=== PATIENT | male | born 1945 | race Native Hawaiian/Other Pacific Islander ===

== ENCOUNTER 2016-12-22 11:00 | Outpatient (CLI) | payer OTHER, MEDICARE | END 2016-12-22 11:01 | disposition home or self-care (01) | DX: N05.9 Unspecified nephritic syndrome with unspecified morphologic changes (principal); D70.9 Neutropenia, unspecified; E83.30 Disorder of phosphorus metabolism, unspecified; N25.81 Secondary hyperparathyroidism of renal origin ==

== ENCOUNTER 2017-01-20 13:12 | Outpatient (CLI) | payer OTHER, MEDICARE ==
[2017-01-21 12:08] LABS: CALCIUM 9.8 mg/dL (8.5-10.3); CREATININE 2.3 mg/dL (0.6-1.2); POTASSIUM 4.4 mmol/L (3.5-5.0)
== END 2017-01-20 13:13 | disposition home or self-care (01) ==
LOC: LAB.F 13:12
PROVIDERS: ATTEND Internal Medicine Nephrology
DX: N05.9 Unspecified nephritic syndrome with unspecified morphologic changes (principal); I50.32 Chronic diastolic (congestive) heart failure
CPT/HCPCS: 36415; 80048; 83880

== ENCOUNTER 2017-02-04 13:59 | Outpatient (CLI) | payer OTHER, MEDICARE ==
[2017-02-04 19:01] LABS: CALCIUM 9.6 mg/dL (8.5-10.3); CREATININE 1.9 mg/dL (0.6-1.2); POTASSIUM 4.5 mmol/L (3.5-5.0)
== END 2017-02-04 14:00 | disposition home or self-care (01) ==
LOC: LAB.F 13:59
PROVIDERS: ATTEND Internal Medicine Nephrology
DX: N05.9 Unspecified nephritic syndrome with unspecified morphologic changes (principal)
CPT/HCPCS: 36415; 80048

== ENCOUNTER 2017-03-06 09:43 | Outpatient (CLI) | payer OTHER, MEDICARE ==
[2017-03-06 10:08] LABS: CALCIUM 9.5 mg/dL (8.5-10.3); POTASSIUM 4.2 mmol/L (3.5-5.0)
== END 2017-03-06 09:44 | disposition home or self-care (01) ==
LOC: LAB 09:43
PROVIDERS: ATTEND Internal Medicine Nephrology
DX: N05.9 Unspecified nephritic syndrome with unspecified morphologic changes (principal)
CPT/HCPCS: 36415; 80048

== ENCOUNTER 2018-07-05 13:32 | Outpatient (CLI) | payer OTHER, MEDICARE | END 2018-07-05 13:33 | disposition critical access hospital (66) | LOC: EMS 13:32 | PROVIDERS: ATTEND Surgery | DX: R10.13 Epigastric pain (principal); R11.0 Nausea; R42 Dizziness and giddiness | CPT/HCPCS: A0425; A0429 ==

== ENCOUNTER 2018-07-05 14:11 | Emergency (ER) | payer OTHER, MEDICARE ==
[2018-07-05] MEDS ORDERED: SODIUM CHLORIDE 0.9% 1,000 ML IV ONE (14:38)
[2018-07-05 14:44] LABS: BILIRUBIN,URINE NEGATIVE (NEGATIVE); GLUCOSE, URINE (UA) NEGATIVE (NEGATIVE); KETONES,URINE (UA) NEGATIVE (NEGATIVE); LEUKOCYTE ESTERASE, URINE NEGATIVE (NEGATIVE); NITRITE,URINE NEGATIVE (NEGATIVE); OCCULT BLOOD,URINE TRACE-LYSE (NEGATIVE); PROTEIN,URINE NEGATIVE (NEGATIVE); UROBILINOGEN,URINE 0.2 (NORMAL) E.U./dL (NORMAL)
[2018-07-05 14:47] LABS: CLARITY,URINE CLEAR (CLEAR)
--- NOTE | 2018-07-05 15:01 | ED Physician Documentation ---
PD HPI ABD PAIN - Stated complaint Stated Complaint: ABD PX - Chief complaint Chief Complaint: Abd Pain - History obtained from History obtained from: Patient, EMS - History of Present Illness Timing - onset: Today Timing - duration: Days (1) Timing - details: Abrupt onset, Now resolved Pain level max: 8 Pain level now: 0 Quality: Pain Location: RUQ, Epigastric Radiation: Other (non-radiating) Improved by: Meds (states took a pain medication today) Worsened by: Eating Associated symptoms: Nausea. No: Fever, Vomiting, Hematemesis, Diarrhea, Constipation, Melena, Hematochezia, Dysuria Similar symptoms before: Diagnosis (biliary colic) Recently seen: Emergency Dept ([facility]) Review of Systems Constitutional: denies: Fever, Chills, Myalgias Ears: denies: Ear pain Nose: denies: Rhinorrhea / runny nose, Congestion Throat: denies: Sore throat Respiratory: denies: Cough : denies: Dysuria Skin: denies: Rash Musculoskeletal: denies: Neck pain, Back pain PD PAST MEDICAL HISTORY - Past Medical History Past Medical History: Yes Cardiovascular: Hypertension, High cholesterol Respiratory: None Neuro: None Endocrine/Autoimmune: Type 2 diabetes GI: None : None HEENT: None Psych: None Musculoskeletal: None Derm: None - Past Surgical History Past Surgical History: No HEENT: Cataracts - Present Medications Home Medications: Ambulatory Orders Medication Instructions Recorded Confirmed Hydrocodone/Acetaminophen 07/05/18 [Hydrocodone-Acetamin 5-325 mg] Lisinopril/Hydrochlorothiazide 07/05/18 [Lisinopril-Hctz 20-12.5 mg Tab] Ondansetron [Ondansetron Odt] 4 mg PO 07/05/18 - Allergies Allergies/Adverse Reactions: Allergies Allergy/AdvReac Type Severity Reaction Status Date / Time ezetimibe Allergy Unknown Verified 07/05/18 14:16 - Social History Does the pt smoke?: No Smoking Status: Never smoker Does the pt drink ETOH?: Yes Does the pt have substance abuse?: No - Immunizations Immunizations are current?: Yes - POLST Patient has POLST: No PD ED PE NORMAL - Vitals Vital signs reviewed: Yes - General General: Alert and oriented X 3, No acute distress - HEENT HEENT: Moist mucous membranes - Neck Neck: Supple, no meningeal sign - Cardiac Cardiac: RRR - Respiratory Respiratory: No respiratory distress, Clear bilaterally - Abdomen Abdomen: Soft, Non tender, Non distended - Back Back: No CVA TTP, No spinal TTP - Derm Derm: Warm and dry - Extremities Extremities: No edema - Neuro Neuro: Alert and oriented X 3 - Psych Psych: Normal mood, Normal affect Results - Vitals Vitals: Vital Signs - 24 hr 07/05/18 07/05/18 14:11 16:41 Temperature 36.8 C Heart Rate 54 L 56 L Respiratory 20 18 Rate Blood Pressure 187/71 H 178/70 H O2 Saturation 94 98 Oxygen O2 Source Room air - Labs Labs: Laboratory Tests 07/05/18 07/05/18 07/05/18 14:27 14:50 14:50 WBC 5.4 RBC 4.70 Hgb 14.5 Hct 42.5 MCV 90.3 MCH 30.8 MCHC 34.1 RDW 13.5 Plt Count 212 MPV 7.3 L Neut # (Auto) 3.5 Lymph # (Auto) 1.4 L [place] # (Auto) 0.3 Eos # (Auto) 0.1 Baso # (Auto) 0.0 Absolute Nucleated RBC 0.00 Nucleated RBC % 0.0 Sodium 133 L Potassium 4.4 Chloride 98 L Carbon Dioxide 29 Anion Gap 6.0 BUN 26 H Creatinine 1.5 H Estimated GFR (MDRD) 46 L Glucose 135 H Calcium 9.2 Total Bilirubin 1.1 H AST 146 H ALT 175 H Alkaline Phosphatase 126 H Total Protein 7.8 Albumin 4.5 Globulin 3.3 Albumin/Globulin Ratio 1.4 Lipase 39 Urine Color YELLOW Urine Clarity CLEAR Urine pH 7.0 Ur Specific [place] 1.010 Urine Protein NEGATIVE Urine Glucose (UA) NEGATIVE Urine Ketones NEGATIVE Urine Occult Blood TRACE-LYSE Urine Nitrite NEGATIVE Urine Bilirubin NEGATIVE Urine Urobilinogen 0.2 (NORMAL) Ur Leukocyte Esterase NEGATIVE Ur Microscopic Review NOT INDICATED Urine Culture Comments NOT INDICATED - Rads (name of study) Right upper quadrant ultrasound Radiology: Prelim report reviewed, EMP read contemporaneously, See rad report (Cholelithiasis with inconsistent tenderness in the gallbladder region on ultrasound exam. Given absence of secondary in signs of inflammation of the gallbladder and absence of hydropic configuration the examination remains equivocal. ) PD MEDICAL DECISION MAKING - ED course Complexity details: reviewed results, re-evaluated patient, considered differential, d/w patient, d/w family, d/w assessment consultant ED course: Patient is a 72-year-old male with what appears to be biliary colic, although not acute cholecystitis. Pain resolved in the emergency department. Tolerating p.o. well. Mildly elevated LFTs. Discussed case with Dr. Micah Robison, general surgery on-call who recommends follow-up closely in the office this week. Patient and family counseled regarding signs and symptoms for which I believe and urgent re-evaluation would be necessary. Patient with good understanding of and agreement to plan and is comfortable going home at this time This document was made in part using voice recognition software. While efforts are made to proofread this document, sound alike and grammatical errors may occur. Departure - Departure Disposition: 01 Home, Self Care Clinical Impression: Biliary colic Condition: Good Instructions: ED Gallstone W Biliary Colic Follow-Up: Micah Robison MD [Provider Admit Priv/Credential] - Within 3 Days Comments: Follow up with Dr. Robison as scheduled by the surgery office today. Return if you worsen, especially for increasing pain, vomiting or fevers Discharge Date/Time: 07/05/18 16:43
[2018-07-05 15:05] LABS: BASOPHILS % (AUTO) 0.6 %; EOSINOPHILS # (AUTO) 0.1 10^3/uL (0.0-0.7); EOSINOPHILS % (AUTO) 2.1 %; HGB - HEMOGLOBIN 14.5 g/dL (14.0-18.0); LYMPHOCYTES # (AUTO) 1.4 10^3/uL (1.5-3.5); LYMPHOCYTES % (AUTO) 26.1 %; MEAN CORPUSCULAR HEMOGLOBIN 30.8 pg (27.0-31.0); MEAN CORPUSCULAR HGB CONC 34.1 g/dL (32.0-36.0); MEAN CORPUSCULAR VOLUME 90.3 fL (80.0-94.0); MEAN PLATELET VOLUME 7.3 fL (7.4-11.4); MONOCYTES # (AUTO) 0.3 10^3/uL (0.0-1.0); MONOCYTES % (AUTO) 6.3 %; NEUTROPHILS # (AUTO) 3.5 10^3/uL (1.5-6.6); NEUTROPHILS % (AUTO) 64.9 %; PLT - PLATELET COUNT 212 10^3/uL (130-450); RED CELL DISTRIBUTION WIDTH 13.5 % (12.0-15.0); WHITE BLOOD COUNT 5.4 x10^3/uL (4.8-10.8)
[2018-07-05 15:22] LABS: ALBUMIN 4.5 g/dL (3.2-5.5); ALBUMIN/GLOBULIN RATIO 1.4 (1.0-2.2); BILIRUBIN,TOTAL 1.1 mg/dL (0.2-1.0); CALCIUM 9.2 mg/dL (8.5-10.3); CREATININE 1.5 mg/dL (0.6-1.2); TOTAL PROTEIN 7.8 g/dL (6.7-8.2)
--- NOTE | 2018-07-05 15:59 | Ultrasound Report ---
Reason: RUQ pain, h/o gallstones Procedure Date: 07/05/2018 Accession Number: [id number] / [id number] Procedure: US - Abdomen Limited CPT Code: FULL RESULT: EXAM: ABDOMEN ULTRASOUND LIMITED, RUQ EXAM DATE: 07/05/2018 03:28 PM. CLINICAL HISTORY: Right upper quadrant pain, history of gallstones. COMPARISON: None. TECHNIQUE: Real-time scanning was performed with static images obtained. FINDINGS: Liver: Liver demonstrates increased echogenicity and a coarsened heterogeneous echotexture with focal fatty sparing in the gallbladder fossa. The right lobe of the liver measures at least 16.4 cm. Main portal vein flow: Hepatopetal. Gallbladder: The patient was tender in the right upper quadrant, though the finding was inconsistent throughout the examination. There is cholelithiasis with all visualized calculi mobile. There is no wall thickening or pericholecystic fluid. Biliary System: CBD measures 3 mm. No intrahepatic or extrahepatic ductal dilatation. Other: None. IMPRESSION: Cholelithiasis with inconsistent tenderness in the gallbladder region on ultrasound exam. Given absence of secondary in signs of inflammation of the gallbladder and absence of hydropic configuration the examination remains equivocal. RADIA
[2018-07-05 16:42] VITALS: BP 178/70
== END 2018-07-05 16:43 | disposition home or self-care (01) ==
LOC: EDUNIT# → ED 14:11
DX: K80.50 Calculus of bile duct without cholangitis or cholecystitis without obstruction (principal); I10 Essential (primary) hypertension; E11.9 Type 2 diabetes mellitus without complications
CPT/HCPCS: 36415; 76705; 80053; 81001; 81003; 83690; 85025; 87086; 99283

== ENCOUNTER 2020-04-17 14:09 | Outpatient (CLI) | payer MEDICARE, OTHER ==
[2020-04-17 20:06] LABS: CALCIUM 9.6 mg/dL (8.5-10.3); CREATININE 1.3 mg/dL (0.6-1.2)
== END 2020-04-17 14:10 | disposition home or self-care (01) ==
LOC: LAB.S 14:09
PROVIDERS: ATTEND Urology
DX: N05.9 Unspecified nephritic syndrome with unspecified morphologic changes (principal)
CPT/HCPCS: 36415; 80048

== ENCOUNTER 2020-06-02 10:31 | Outpatient (CLI) | payer MEDICARE, OTHER ==
[2020-06-02 20:59] LABS: HEMOGLOBIN A1c% 7.1 % (4.27-6.07)
== END 2020-06-02 10:32 | disposition home or self-care (01) ==
LOC: LAB.S 10:31
PROVIDERS: ATTEND Family Medicine
DX: E11.22 Type 2 diabetes mellitus with diabetic chronic kidney disease (principal); N18.30 Chronic kidney disease, stage 3 unspecified
CPT/HCPCS: 36415; 83036

== ENCOUNTER 2020-08-08 14:50 | Outpatient (CLI) | payer MEDICARE, OTHER ==
[2020-08-08 20:05] LABS: HEMOGLOBIN A1c% 6.9 % (4.27-6.07)
[2020-08-08 20:13] LABS: CALCIUM 9.4 mg/dL (8.5-10.3); CREATININE 1.3 mg/dL (0.6-1.2)
[2020-08-08 20:16] LABS: CREATININE,URINE 40.4 mg/dL; TOTAL PROTEIN,URINE TIMED < 6 mg/dL
== END 2020-08-08 14:51 | disposition home or self-care (01) ==
LOC: LAB.S 14:50
PROVIDERS: ATTEND Urology
DX: N05.9 Unspecified nephritic syndrome with unspecified morphologic changes (principal); C61 Malignant neoplasm of prostate; R80.9 Proteinuria, unspecified; E11.22 Type 2 diabetes mellitus with diabetic chronic kidney disease; N18.30 Chronic kidney disease, stage 3 unspecified
CPT/HCPCS: 36415; 80048; 82570; 83036; 84153; 84156

== ENCOUNTER 2020-11-16 11:13 | Outpatient (CLI) | payer MEDICARE, OTHER | END 2020-11-16 11:14 | disposition home or self-care (01) | LOC: NS 11:13 | PROVIDERS: ATTEND Family Medicine | DX: Z71.3 Dietary counseling and surveillance (principal); E78.1 Pure hyperglyceridemia; K21.9 Gastro-esophageal reflux disease without esophagitis; N18.31 Chronic kidney disease, stage 3a; E11.22 Type 2 diabetes mellitus with diabetic chronic kidney disease | CPT/HCPCS: 97802 ==

== ENCOUNTER 2020-12-03 10:26 | Outpatient (CLI) | payer MEDICARE ==
[2020-12-03 16:31] LABS: ALBUMIN 4.3 g/dL (3.2-5.5); ALBUMIN/GLOBULIN RATIO 1.3 (1.0-2.2); ALKALINE PHOSPHATASE 75 IU/L (42-121); ALT ALANINE AMINOTRANSFERASE 22 IU/L (10-60); AST ASPARTATE AMINOTRANSFERASE 27 IU/L (10-42); BILIRUBIN,TOTAL 0.9 mg/dL (0.2-1.0); BUN - BLOOD UREA NITROGEN 27 mg/dL (6-20); CALCIUM 10.2 mg/dL (8.5-10.3); CARBON DIOXIDE - CO2 24 mmol/L (21-32); CHLORIDE 99 mmol/L (101-111); CHOLESTEROL 232 mg/dL; CREATININE 1.3 mg/dL (0.6-1.2); GFR - MDRD 54 (>89); GLUCOSE 150 mg/dL (70-100); HDL CHOLESTEROL 33 mg/dL; POTASSIUM 4.5 mmol/L (3.5-5.0); SODIUM 135 mmol/L (135-145); TOTAL PROTEIN 7.6 g/dL (6.7-8.2); TRIGLYCERIDES 468 mg/dL
[2020-12-03 16:50] LABS: CREATININE,URINE 95.1 mg/dL; MICROALBUM/CREATININE RATIO,UR 47.3 ug/mg (<30.0); MICROALBUMIN,URINE 4.5 mg/dL (0-300.0)
[2020-12-03 17:06] LABS: LDL CHOLESTEROL,DIRECT 106 mg/dL; LDLD/HDL RATIO 3.2 (<3.6)
[2020-12-03 19:49] LABS: ESTIMATED AVERAGE GLUCOSE 160 mg/dL (70-100); HEMOGLOBIN A1c% 7.2 % (4.27-6.07)
== END 2020-12-03 10:27 | disposition home or self-care (01) ==
LOC: LAB.S 10:26
PROVIDERS: ATTEND Family Medicine
DX: E11.22 Type 2 diabetes mellitus with diabetic chronic kidney disease (principal); C61 Malignant neoplasm of prostate; N18.31 Chronic kidney disease, stage 3a; E78.1 Pure hyperglyceridemia
CPT/HCPCS: 36415; 80053; 80061; 82043; 82570; 83036; 83721; 84153

== ENCOUNTER 2021-01-25 11:31 | Outpatient (CLI) | payer MEDICARE | END 2021-01-25 11:32 | disposition home or self-care (01) | LOC: NS 11:31 | PROVIDERS: ATTEND Family Medicine | DX: Z71.3 Dietary counseling and surveillance (principal); E11.22 Type 2 diabetes mellitus with diabetic chronic kidney disease; N18.31 Chronic kidney disease, stage 3a; E78.1 Pure hyperglyceridemia; K21.9 Gastro-esophageal reflux disease without esophagitis | CPT/HCPCS: 97803 ==

== ENCOUNTER 2021-03-17 19:56 | Emergency (ER) | payer MEDICARE ==
[2021-03-17 20:31] LABS: BASOPHILS % (AUTO) 0.2 %; EOSINOPHILS % (AUTO) 0.1 %; HCT - HEMATOCRIT 34.8 % (42.0-52.0); HGB - HEMOGLOBIN 11.7 g/dL (14.0-18.0); LYMPHOCYTES # (AUTO) 0.9 10^3/uL (1.5-3.5); LYMPHOCYTES % (AUTO) 9.8 %; MEAN CORPUSCULAR HEMOGLOBIN 31.2 pg (27.0-31.0); MEAN CORPUSCULAR HGB CONC 33.6 g/dL (32.0-36.0); MEAN CORPUSCULAR VOLUME 92.8 fL (80.0-94.0); MEAN PLATELET VOLUME 8.2 fL (7.4-11.4); MONOCYTES # (AUTO) 0.8 10^3/uL (0.0-1.0); MONOCYTES % (AUTO) 8.4 %; NEUTROPHILS # (AUTO) 7.7 10^3/uL (1.5-6.6); NEUTROPHILS % (AUTO) 81.1 %; PLT - PLATELET COUNT 162 10^3/uL (130-450); RED BLOOD COUNT 3.75 10^6/uL (4.70-6.10); RED CELL DISTRIBUTION WIDTH 12.9 % (12.0-15.0); WHITE BLOOD COUNT 9.5 x10^3/uL (4.8-10.8)
[2021-03-17 20:46] LABS: ALBUMIN 3.9 g/dL (3.2-5.5); ALBUMIN/GLOBULIN RATIO 1.1 (1.0-2.2); BILIRUBIN,TOTAL 1.6 mg/dL (0.2-1.0); CALCIUM 9.1 mg/dL (8.5-10.3); CREATININE 1.6 mg/dL (0.6-1.2); POTASSIUM 3.7 mmol/L (3.5-5.0); TOTAL PROTEIN 7.5 g/dL (6.7-8.2)
[2021-03-17 20:47] LABS: BILIRUBIN,URINE NEGATIVE (NEGATIVE); GLUCOSE, URINE (UA) NEGATIVE (NEGATIVE); KETONES,URINE (UA) NEGATIVE (NEGATIVE); LEUKOCYTE ESTERASE, URINE NEGATIVE (NEGATIVE); NITRITE,URINE NEGATIVE (NEGATIVE); OCCULT BLOOD,URINE TRACE-INTA (NEGATIVE); PH,URINE 8.5 PH (5.0-7.5); PROTEIN,URINE TRACE mg/dL (NEGATIVE); UROBILINOGEN,URINE 0.2 (NORMAL) E.U./dL (NORMAL)
[2021-03-17 20:49] LABS: CLARITY,URINE CLEAR (CLEAR)
[2021-03-17] MEDS ORDERED: SODIUM CHLORIDE 0.9% 1,000 ML IV STA (21:24)
--- NOTE | 2021-03-17 21:30 | ED Physician Documentation ---
PD HPI HEADACHE - Stated complaint Stated Complaint: nausea, not eating,weak - Chief complaint Chief Complaint: General - History obtained from History obtained from: Patient, Family - History of Present Illness Timing - onset: How many days ago (3) Timing - onset during: Rest Timing - duration: Days (3) Timing - details: Gradual onset, Still present Pain level max: 10 Pain level now: 10 Location: Global Quality: Throbbing Associated symptoms: Other (worse pain with stooping). No: Fever, Stiff neck, Nausea, Vomiting, Weakness, Numbness, Syncope, Seizure, Eye pain, Vision changes Improved by: Rest Worsened by: Moving Contributing factors: Recent illness (had OM treated 10 days ago). No: Anticoagulated, Possible carbon monoxide, Hypertension Similar symptoms before: Diagnosis (migraine headache is not like migraine) Recently seen: Clinic - Additional information Additional information: 75-year-old male with a history of type 2 diabetes is developed a headache over the past 3 days that is different from what he is ever had with his migraines. He has a global throbbing headache that is worse if he is stooping. He is recently been treated for otitis media with oral antibiotic and finished this course about 10 days ago. He denies any nausea or vomiting associated with this headache. Review of Systems Constitutional: denies: Fever Eyes: denies: Decreased vision Ears: denies: Ear pain Nose: denies: Rhinorrhea / runny nose, Congestion Throat: denies: Sore throat Cardiac: denies: Chest pain / pressure, Palpitations Respiratory: denies: Dyspnea, Cough GI: denies: Abdominal Pain, Nausea, Vomiting, Constipation, Diarrhea : reports: Dysuria, Frequency PD PAST MEDICAL HISTORY - Past Medical History Past Medical History: Yes Cardiovascular: Hypertension, High cholesterol Respiratory: None Neuro: Headaches, Migraines Endocrine/Autoimmune: Type 2 diabetes GI: GERD : None HEENT: None Psych: None Musculoskeletal: None Derm: None - Past Surgical History Past Surgical History: Yes HEENT: Cataracts - Present Medications Home Medications: Ambulatory Orders Medication Instructions Recorded Confirmed Atorvastatin [Lipitor] 10 mg PO DAILY 03/17/21 03/17/21 Butalbit/Acetamin/Caff/Codeine 1 cap PO Q6HR PRN 03/17/21 03/17/21 [Fioricet-Cod 63-808-32-30 Cap] Pantoprazole Sodium 40 mg PO BID 03/17/21 03/17/21 Steroids 03/17/21 clindamycin HCL [Clindamycin HCl] 300 mg PO TID 03/17/21 03/17/21 lisinopriL [Lisinopril] 5 mg PO DAILY 03/17/21 03/17/21 Amox/Clav 875/125 [Augmentin] 1 each PO Q12H #20 tablet 03/18/21 HYDROcod/ACETAM 5/325 [[place] 5/325] 1 - 2 tablet PO Q6H PRN #14 tablet 03/18/21 - Allergies Allergies/Adverse Reactions: Allergies Allergy/AdvReac Type Severity Reaction Status Date / Time ezetimibe Allergy Unknown Verified 07/05/18 14:16 metformin Allergy Unknown Verified 03/17/21 20:10 - Social History Does the pt smoke?: No Smoking Status: Never smoker Does the pt drink ETOH?: Yes Does the pt have substance abuse?: No - Immunizations Immunizations are current?: Yes - POLST Patient has POLST: No PD ED PE NORMAL - Vitals Vital signs reviewed: Yes (Hypertensive with wide pulse pressure) - General General: Alert and oriented X 3, No acute distress, Well developed/nourished, Other (75-year-old male resting comfortably he does have some lid ptosis on the right side which is pre-existing.) - HEENT HEENT: Atraumatic, PERRL, EOMI, Other (Left TM is not visible secondary to cerumen) - Neck Neck: Supple, no meningeal sign, No bony TTP - Cardiac Cardiac: RRR, No murmur - Respiratory Respiratory: No respiratory distress, Clear bilaterally - Abdomen Abdomen: Normal bowel sounds, Soft, Non tender, Non distended, No organomegaly - Back Back: No CVA TTP, No spinal TTP - Derm Derm: Normal color, Warm and dry, No rash - Extremities Extremities: No deformity, No edema - Neuro Neuro: Alert and oriented X 3, rib builder 2-12 intact, No motor deficit, No sensory deficit, Normal speech Eye Opening: Spontaneous Motor: Obeys Commands Verbal: Oriented GCS Score: 15 - Psych Psych: Normal mood, Normal affect Results - Vitals Vitals: Vital Signs - 24 hr 07/18/21 07/18/21 07/18/21 20:05 21:01 23:56 Temperature 36.9 C Heart Rate 81 76 74 Respiratory 20 16 16 Rate Blood Pressure 147/60 H 155/72 H 153/60 H O2 Saturation 96 97 100 03/18/21 03/18/21 00:20 00:21 Temperature Heart Rate 86 74 Respiratory 18 16 Rate Blood Pressure 132/77 H 153/64 H O2 Saturation 100 100 Oxygen O2 Source Room air - Labs Labs: Laboratory Tests 03/17/21 03/17/21 03/17/21 20:05 20:28 20:28 WBC 9.5 RBC 3.75 L Hgb 11.7 L Hct 34.8 L MCV 92.8 MCH 31.2 H MCHC 33.6 RDW 12.9 Plt Count 162 MPV 8.2 Neut # (Auto) 7.7 H Lymph # (Auto) 0.9 L [place] # (Auto) 0.8 Eos # (Auto) 0.0 Baso # (Auto) 0.0 Absolute Nucleated RBC 0.00 Nucleated RBC % 0.0 Sodium 127 L Potassium 3.7 Chloride 85 L Carbon Dioxide 30 Anion Gap 12.0 BUN 18 Creatinine 1.6 H Estimated GFR (MDRD) 42 L Glucose 165 H Calcium 9.1 Total Bilirubin 1.6 H AST 50 H ALT 49 Alkaline Phosphatase 79 Total Protein 7.5 Albumin 3.9 Globulin 3.6 Albumin/Globulin Ratio 1.1 Lipase 33 Urine Color YELLOW Urine Clarity CLEAR Urine pH 8.5 H Ur Specific [place] 1.015 Urine Protein TRACE Urine Glucose (UA) NEGATIVE Urine Ketones NEGATIVE Urine Occult Blood TRACE-INTA Urine Nitrite NEGATIVE Urine Bilirubin NEGATIVE Urine Urobilinogen 0.2 (NORMAL) Ur Leukocyte Esterase NEGATIVE Ur Microscopic Review NOT INDICATED Urine Culture Comments NOT INDICATED - Rads (name of study) CT head without Radiology: Prelim report reviewed (Impression: 1. No acute intracranial abnorm ality. Sinus mucosal disease with near complete opacification of the visualized right maxillary sinus.), EMP read indepedently, See rad report Procedures - IVC sono (time) 2119 Bedside IVC sono: IVC measures (cm) (1.09), IVC collapsed c insp (cm) (complete), Dehydration (est 1-2 liter deficit) PD MEDICAL DECISION MAKING - ED course Complexity details: reviewed old records, reviewed results, re-evaluated patient, considered differential, d/w patient, d/w family ED course: 75-year-old male with 3 days of a throbbing headache is found to be dehydrated on interrogation the inferior vena cava. He is a type II diabetic he drinks a lot of water and he is found to have a low sodium. Today here in the in the emergency department we have provided an IV and intravenous fluid in the form of saline and a CT scan of the head is obtained. CT of the head demonstrates right maxillary sinusitis and sinus disease. The patient has no significant improvement with the addition of volume support. His headache is likely related to the sinus disease and treatment of the sinus disease is indicated. He is administered intravenous Rocephin dexamethasone and Toradol. Departure - Departure Disposition: Home, Self Care Clinical Impression: Sinusitis Qualifiers: Sinusitis location: maxillary Chronicity: acute Recurrence: not specified as recurrent Qualified Code(s): J01.00 - Acute maxillary sinusitis, unspecified Condition: Stable Instructions: ED Sinusitis Abx Tx Follow-Up: Josh Dupree MD [Physician No Access] - Prescriptions: Amox/Clav 875/125 [Augmentin] 1 each PO Q12H #20 tablet HYDROcod/ACETAM 5/325 [[place] 5/325] 1 - 2 tablet PO Q6H PRN #14 tablet PRN Reason: Pain
--- NOTE | 2021-03-17 23:39 | CT Report ---
PROCEDURE: HEAD WO INDICATIONS: headache persistent TECHNIQUE: Noncontrast 4.5 mm thick angled axial sections acquired from the foramen magnum to the vertex. For r adiation dose reduction, the following was used: automated exposure control, adjustment of mA and/or kV according to patient size. COMPARISON: None. FINDINGS: Image quality: Excellent. CSF spaces: Basal cisterns are patent. No extra-axial fluid collections. There is mild cerebral vo lume loss with prominence of the ventricles and sulci. Brain: No intracranial mass, mass effect, or hemorrhage. Schmidt-white matter interface is preserved. Skull and face: Calvarium and visualized facial bones are intact, without suspicious lesions. Sinuses: Visualized sinuses demonstrate near complete opacification of the right maxillary sinus. Th ere is mild mucosal thickening in the right ethmoid sinuses. IMPRESSION: 1. No acute intracranial abnormality. 2. Sinus mucosal disease with near-complete opacification of the visualized right maxillary sinus. Reviewed by: Pastor Gaitan MD on 03/17/2021 11:38 PM PDT Approved by: Pastor Gaitan MD on 03/17/2021 11:38 PM PDT Station ID: [id number]
[2021-03-18] MEDS ORDERED: DEXAMETHASONE 10 MG/ML VIAL IVP STA (00:09)
[2021-03-18] MEDS ORDERED: cefTRIAXone 1 GM in SODIUM CHLORIDE 0.9% MINIBAG 100 ML IV STA (00:09)
[2021-03-18] MEDS ORDERED: KETOROLAC 30 MG/ML VIAL IVP STA (00:10)
[2021-03-18] MEDS ORDERED: cefTRIAXone 1 GM VIAL ONE (00:24)
[2021-03-18 01:33] VITALS: BP 145/62
== END 2021-03-18 01:28 | disposition home or self-care (01) ==
LOC: ED 19:56
DX: J01.00 Acute maxillary sinusitis, unspecified (principal); E86.0 Dehydration; I10 Essential (primary) hypertension; E11.9 Type 2 diabetes mellitus without complications
CPT/HCPCS: 36415; 80053; 81001; 81003; 83690; 85025; 87086; 96365; 96375; 99284

== ENCOUNTER 2021-03-22 18:36 | Outpatient (CLI) | payer MEDICARE ==
[2021-03-22 20:11] LABS: HCT - HEMATOCRIT 34.7 % (42.0-52.0); HGB - HEMOGLOBIN 11.5 g/dL (14.0-18.0); MEAN CORPUSCULAR HGB CONC 33.1 g/dL (32.0-36.0); MEAN CORPUSCULAR VOLUME 90.6 fL (80.0-94.0); MEAN PLATELET VOLUME 9.5 fL (7.4-11.4); RED BLOOD COUNT 3.83 10^6/uL (4.70-6.10); RED CELL DISTRIBUTION WIDTH 13.2 % (12.0-15.0)
[2021-03-22 20:26] LABS: CALCIUM 9.2 mg/dL (8.5-10.3); CREATININE 1.5 mg/dL (0.6-1.2); POTASSIUM 3.9 mmol/L (3.5-5.0)
== END 2021-03-22 18:37 | disposition home or self-care (01) ==
LOC: LAB.S 18:36
PROVIDERS: ATTEND Family Medicine
DX: D64.9 Anemia, unspecified (principal); E11.22 Type 2 diabetes mellitus with diabetic chronic kidney disease; N18.31 Chronic kidney disease, stage 3a; E87.1 Hypo-osmolality and hyponatremia
CPT/HCPCS: 36415; 80048; 82607; 82728; 82746; 83540; 85025; 85027

== ENCOUNTER 2021-04-04 18:09 | Outpatient (CLI) | payer MEDICARE | END 2021-04-04 18:10 | disposition home or self-care (01) | LOC: LAB.S 18:09 | PROVIDERS: ATTEND Urology | DX: C61 Malignant neoplasm of prostate (principal) | CPT/HCPCS: 36415; 84153 ==

== ENCOUNTER 2021-04-26 17:33 | Outpatient (CLI) | payer MEDICARE | END 2021-04-26 17:34 | disposition home or self-care (01) | LOC: LAB.S 17:33 | PROVIDERS: ATTEND Urology | DX: C61 Malignant neoplasm of prostate (principal) | CPT/HCPCS: 36415; 84153 ==

== ENCOUNTER 2021-05-30 01:19 | Outpatient (CLI) | payer MEDICARE | END 2021-05-30 01:20 | disposition EMS.NT | LOC: EMS 01:19 | DX: G43.909 Migraine, unspecified, not intractable, without status migrainosus (principal) ==

== ENCOUNTER 2021-11-15 16:28 | Outpatient (CLI) | payer MEDICARE | END 2021-11-15 16:29 | disposition home or self-care (01) | LOC: LAB.S 16:28 | PROVIDERS: ATTEND Urology | DX: C61 Malignant neoplasm of prostate (principal) | CPT/HCPCS: 36415; 84153 ==

== ENCOUNTER 2022-05-18 01:12 | Outpatient (CLI) | payer MEDICARE | END 2022-05-18 01:13 | disposition EMS.NT | LOC: EMS 01:12 | DX: G43.909 Migraine, unspecified, not intractable, without status migrainosus (principal) ==

== ENCOUNTER 2022-10-30 08:49 | Outpatient (CLI) | payer MEDICARE ==
[2022-10-30 14:38] LABS: BASOPHILS # (AUTO) 0.1 10^3/uL (0.0-0.1); BASOPHILS % (AUTO) 0.9 %; EOSINOPHILS # (AUTO) 0.2 10^3/uL (0.0-0.7); EOSINOPHILS % (AUTO) 3.4 %; HCT - HEMATOCRIT 38.4 % (42.0-52.0); HGB - HEMOGLOBIN 12.6 g/dL (14.0-18.0); LYMPHOCYTES % (AUTO) 44.9 %; MEAN CORPUSCULAR HEMOGLOBIN 30.4 pg (27.0-31.0); MEAN CORPUSCULAR HGB CONC 32.8 g/dL (32.0-36.0); MEAN CORPUSCULAR VOLUME 92.5 fL (80.0-94.0); MONOCYTES # (AUTO) 0.5 10^3/uL (0.0-1.0); MONOCYTES % (AUTO) 6.7 %; NEUTROPHILS % (AUTO) 43.8 %; PLT - PLATELET COUNT 255 10^3/uL (130-450); RED BLOOD COUNT 4.15 10^6/uL (4.70-6.10); WHITE BLOOD COUNT 6.7 x10^3/uL (4.8-10.8)
[2022-10-30 14:47] LABS: CALCIUM 10.4 mg/dL (8.5-10.3); CREATININE 1.4 mg/dL (0.6-1.2); POTASSIUM 4.8 mmol/L (3.5-5.0)
[2022-10-30 22:18] LABS: ESTIMATED AVERAGE GLUCOSE 194 mg/dL (70-100); HEMOGLOBIN A1c% 8.4 % (4.27-6.07)
== END 2022-10-30 08:50 | disposition home or self-care (01) ==
LOC: LAB.S 08:49
PROVIDERS: ATTEND Internal Medicine Nephrology
DX: N05.9 Unspecified nephritic syndrome with unspecified morphologic changes (principal); D63.1 Anemia in chronic kidney disease; E11.9 Type 2 diabetes mellitus without complications
CPT/HCPCS: 36415; 80048; 83036; 85025

== ENCOUNTER 2022-11-25 14:02 | Outpatient (CLI) | payer MEDICARE | END 2022-11-25 14:03 | disposition home or self-care (01) | LOC: LAB.S 14:02 | PROVIDERS: ATTEND Urology | DX: C61 Malignant neoplasm of prostate (principal) | CPT/HCPCS: 36415; 84153 ==

== ENCOUNTER 2024-03-14 09:17 | Outpatient (CLI) | payer MEDICARE ==
[2024-03-14 14:29] LABS: BASOPHILS % (AUTO) 0.5 %; EOSINOPHILS # (AUTO) 0.1 10^3/uL (0.0-0.7); EOSINOPHILS % (AUTO) 0.9 %; HCT - HEMATOCRIT 41.7 % (42.0-52.0); HGB - HEMOGLOBIN 13.4 g/dL (14.0-18.0); LYMPHOCYTES # (AUTO) 1.6 10^3/uL (1.5-3.5); LYMPHOCYTES % (AUTO) 19.8 %; MEAN CORPUSCULAR HEMOGLOBIN 29.9 pg (27.0-31.0); MEAN CORPUSCULAR HGB CONC 32.1 g/dL (32.0-36.0); MEAN CORPUSCULAR VOLUME 93.1 fL (80.0-94.0); MEAN PLATELET VOLUME 9.1 fL (7.4-11.4); MONOCYTES # (AUTO) 0.7 10^3/uL (0.0-1.0); MONOCYTES % (AUTO) 8.8 %; NEUTROPHILS # (AUTO) 5.7 10^3/uL (1.5-6.6); NEUTROPHILS % (AUTO) 69.6 %; PLT - PLATELET COUNT 239 10^3/uL (130-450); RED BLOOD COUNT 4.48 10^6/uL (4.70-6.10); RED CELL DISTRIBUTION WIDTH 12.9 % (12.0-15.0); WHITE BLOOD COUNT 8.2 x10^3/uL (4.8-10.8)
[2024-03-14 14:48] LABS: CALCIUM 10.1 mg/dL (8.5-10.3); CREATININE 1.6 mg/dL (0.6-1.3)
[2024-03-14 14:52] LABS: CREATININE,URINE 75.2 mg/dL; PROTEIN/CREATININE RATIO,URINE 0.2 (<=0.2)
== END 2024-03-14 09:18 | disposition home or self-care (01) ==
LOC: LAB.S 09:17
PROVIDERS: ATTEND Internal Medicine Nephrology
DX: N05.9 Unspecified nephritic syndrome with unspecified morphologic changes (principal); R80.9 Proteinuria, unspecified; D70.9 Neutropenia, unspecified; D63.1 Anemia in chronic kidney disease
CPT/HCPCS: 36415; 80048; 82570; 84156; 85025

== ENCOUNTER 2024-03-14 22:55 | Emergency (ER) | payer MEDICARE ==
[2024-03-14 23:17] LABS: BASOPHILS % (AUTO) 0.3 %; EOSINOPHILS % (AUTO) 0.2 %; HCT - HEMATOCRIT 39.8 % (42.0-52.0); HGB - HEMOGLOBIN 12.7 g/dL (14.0-18.0); LYMPHOCYTES # (AUTO) 1.4 10^3/uL (1.5-3.5); LYMPHOCYTES % (AUTO) 15.8 %; MEAN CORPUSCULAR HEMOGLOBIN 29.2 pg (27.0-31.0); MEAN CORPUSCULAR HGB CONC 31.9 g/dL (32.0-36.0); MEAN CORPUSCULAR VOLUME 91.5 fL (80.0-94.0); MEAN PLATELET VOLUME 8.5 fL (7.4-11.4); MONOCYTES # (AUTO) 0.9 10^3/uL (0.0-1.0); MONOCYTES % (AUTO) 10.2 %; NEUTROPHILS # (AUTO) 6.4 10^3/uL (1.5-6.6); NEUTROPHILS % (AUTO) 73.2 %; PLT - PLATELET COUNT 200 10^3/uL (130-450); RED BLOOD COUNT 4.35 10^6/uL (4.70-6.10); RED CELL DISTRIBUTION WIDTH 12.8 % (12.0-15.0); WHITE BLOOD COUNT 8.8 x10^3/uL (4.8-10.8)
[2024-03-14 23:36] LABS: ALBUMIN 4.4 g/dL (3.2-5.5); ALBUMIN/GLOBULIN RATIO 1.3 (1.0-2.2); BILIRUBIN,TOTAL 1.2 mg/dL (0.2-1.0); CALCIUM 10.1 mg/dL (8.5-10.3); CREATININE 1.6 mg/dL (0.6-1.3); POTASSIUM 4.2 mmol/L (3.5-4.5); TOTAL PROTEIN 7.7 g/dL (6.4-8.9)
[2024-03-15 02:27] LABS: BILIRUBIN,URINE NEGATIVE (NEGATIVE); GLUCOSE, URINE (UA) >=1000 mg/dL (NEGATIVE); KETONES,URINE (UA) TRACE mg/dL (NEGATIVE); LEUKOCYTE ESTERASE, URINE NEGATIVE (NEGATIVE); NITRITE,URINE NEGATIVE (NEGATIVE); OCCULT BLOOD,URINE NEGATIVE (NEGATIVE); PROTEIN,URINE TRACE mg/dL (NEGATIVE); UROBILINOGEN,URINE 0.2 (NORMAL) E.U./dL (NORMAL)
[2024-03-15 02:28] LABS: CLARITY,URINE CLEAR (CLEAR)
--- NOTE | 2024-03-15 02:35 | ED Physician Documentation ---
History of Present Illness - Stated complaint Stated Complaint: ABD PX - Chief complaint Chief Complaint: Abd Pain - Additonal information Additional information: 78-year-old male presents with decreased appetite, cough, congestion, redness around his right eye. Symptoms ongoing x 2 days. No known sick contacts. Reports has been tolerant of fluid but not foods. Reports decreased sense of smell. Review of Systems Constitutional: reports: Myalgias. denies: Fever Eyes: denies: Loss of vision Ears: denies: Loss of hearing Nose: reports: Congestion. denies: Rhinorrhea / runny nose Throat: denies: Dental pain / toothache Cardiac: denies: Chest pain / pressure Respiratory: denies: Dyspnea GI: denies: Abdominal Pain Skin: denies: Rash Musculoskeletal: denies: Neck pain PD PAST MEDICAL HISTORY - Past Medical History Cardiovascular: Hypertension, High cholesterol Respiratory: None Neuro: Headaches, Migraines Endocrine/Autoimmune: Type 2 diabetes GI: GERD : None HEENT: None Psych: None Musculoskeletal: None Derm: None - Past Surgical History Past Surgical History: Yes HEENT: Cataracts - Present Medications Home Medications: Ambulatory Orders Medication Instructions Recorded Confirmed Atorvastatin [Lipitor] 10 mg PO DAILY 03/17/21 03/17/21 Butalbit/Acetamin/Caff/Codeine 1 cap PO Q6HR PRN 03/17/21 03/17/21 [Fioricet-Cod 72-848-56-30 Cap] Pantoprazole Sodium 40 mg PO BID 03/17/21 03/17/21 Steroids 03/17/21 clindamycin HCL [Clindamycin HCl] 300 mg PO TID 03/17/21 03/17/21 lisinopriL [Lisinopril] 5 mg PO DAILY 03/17/21 03/17/21 Amox/Clav 875/125 [Augmentin] 1 each PO Q12H #20 tablet 03/18/21 HYDROcod/ACETAM 5/325 [[place] 5/325] 1 - 2 tablet PO Q6H PRN #14 tablet 03/18/21 Erythromycin Ophth Oint (3.5) 1 applic RIGHTEYE TID 5 Days #3.5 03/15/24 [Ilotycin Ophth Oint (3.5)] gm ONDANSETRON ODT Prepack 2 [ZOFRAN 4 mg TL Q6H #20 tablet 03/15/24 ODT Prepack 2] Ondansetron Odt [Zofran] 4 mg TL Q6H PRN #10 tablet 03/15/24 - Allergies Allergies/Adverse Reactions: Allergies Allergy/AdvReac Type Severity Reaction Status Date / Time ezetimibe Allergy Unknown Verified 03/14/24 22:59 metformin Allergy Unknown Verified 03/14/24 22:59 - Social History Does the pt smoke?: No Smoking Status: Never smoker Does the pt drink ETOH?: Yes Does the pt have substance abuse?: No - Immunizations Immunizations are current?: Yes - POLST Patient has POLST: No PD ED PE NORMAL - Vitals Vital signs reviewed: Yes - General General: Alert and oriented X 3, No acute distress, Well developed/nourished - HEENT HEENT: Atraumatic, PERRL, EOMI, Ears normal, Moist mucous membranes, Pharynx benign, Other (Conjunctival injections around the right eye.) - Neck Neck: Supple, no meningeal sign, No bony TTP, No adenopathy, Thyroid normal - Cardiac Cardiac: RRR, No gallop, Strong equal pulses - Respiratory Respiratory: No respiratory distress, Clear bilaterally - Abdomen Abdomen: Normal bowel sounds, Non tender, No organomegaly - Male Male : Deferred - Rectal Rectal: Deferred - Back Back: No CVA TTP, No spinal TTP - Derm Derm: Normal color - Extremities Extremities: No deformity - Neuro Neuro: Alert and oriented X 3, 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, No motor deficit, No sensory deficit, Normal speech - Psych Psych: Normal mood Results - Vitals Vitals: Vital Signs - 24 hr 03/14/24 03/15/24 03/15/24 22:59 02:01 04:00 Temperature 36.8 C Heart Rate 85 82 84 Respiratory 16 18 18 Rate Blood Pressure 160/55 H 151/65 H 153/66 H O2 Saturation 96 97 98 Oxygen O2 Source Room air - Labs Labs: Laboratory Tests 03/14/24 03/14/24 03/15/24 23:12 23:12 02:17 WBC 8.8 RBC 4.35 L Hgb 12.7 L Hct 39.8 L MCV 91.5 MCH 29.2 MCHC 31.9 L RDW 12.8 Plt Count 200 MPV 8.5 Neut # (Auto) 6.4 Lymph # (Auto) 1.4 L [place] # (Auto) 0.9 Eos # (Auto) 0.0 Baso # (Auto) 0.0 Absolute Nucleated RBC 0.00 Nucleated RBC % 0.0 Sodium 131 L Potassium 4.2 Chloride 93 L Carbon Dioxide 30 Anion Gap 8.0 BUN 25 H Creatinine 1.6 H Estimated GFR (MDRD) 42 L Glucose 165 H Calcium 10.1 Total Bilirubin 1.2 H AST 35 ALT 34 Alkaline Phosphatase 90 Total Protein 7.7 Albumin 4.4 Globulin 3.3 Albumin/Globulin Ratio 1.3 Lipase 37 Urine Color YELLOW Urine Clarity CLEAR Urine pH 7.0 Ur Specific [place] 1.010 Urine Protein TRACE Urine Glucose (UA) >=1000 H Urine Ketones TRACE Urine Occult Blood NEGATIVE Urine Nitrite NEGATIVE Urine Bilirubin NEGATIVE Urine Urobilinogen 0.2 (NORMAL) Ur Leukocyte Esterase NEGATIVE Ur Microscopic Review NOT INDICATED Urine Culture Comments NOT INDICATED Nasal Adenovirus (PCR) Nasal B. parapertussis DNA (PCR) Nasal Coronavir 229E PCR Nasal Coronavir HKU1 PCR Nasal Coronavir NL63 PCR Nasal Coronavir OC43 PCR Nasal Enterovir/Rhinovir PCR Nasal Influenza B PCR Nasal Influenza A PCR Nasal Parainfluen 1 PCR Nasal Parainfluen 2 PCR Nasal Parainfluen 3 PCR Nasal Parainfluen 4 PCR Nasal RSV (PCR) Nasal B.pertussis DNA PCR Nasal C.pneumoniae (PCR) [place] Human Metapneumo PCR Nasal M.pneumoniae (PCR) Nasal SARS-CoV-2 (PCR) 03/15/24 02:30 WBC RBC Hgb Hct MCV MCH MCHC RDW Plt Count MPV Neut # (Auto) Lymph # (Auto) [place] # (Auto) Eos # (Auto) Baso # (Auto) Absolute Nucleated RBC Nucleated RBC % Sodium Potassium Chloride Carbon Dioxide Anion Gap BUN Creatinine Estimated GFR (MDRD) Glucose Calcium Total Bilirubin AST ALT Alkaline Phosphatase Total Protein Albumin Globulin Albumin/Globulin Ratio Lipase Urine Color Urine Clarity Urine pH Ur Specific [place] Urine Protein Urine Glucose (UA) Urine Ketones Urine Occult Blood Urine Nitrite Urine Bilirubin Urine Urobilinogen Ur Leukocyte Esterase Ur Microscopic Review Urine Culture Comments Nasal Adenovirus (PCR) NOT DETECTED Nasal B. parapertussis DNA (PCR) NOT DETECTED Nasal Coronavir 229E PCR NOT DETECTED Nasal Coronavir HKU1 PCR NOT DETECTED Nasal Coronavir NL63 PCR NOT DETECTED Nasal Coronavir OC43 PCR NOT DETECTED Nasal Enterovir/Rhinovir PCR NOT DETECTED Nasal Influenza B PCR NOT DETECTED Nasal Influenza A PCR NOT DETECTED Nasal Parainfluen 1 PCR NOT DETECTED Nasal Parainfluen 2 PCR NOT DETECTED Nasal Parainfluen 3 PCR NOT DETECTED Nasal Parainfluen 4 PCR NOT DETECTED Nasal RSV (PCR) NOT DETECTED Nasal B.pertussis DNA PCR NOT DETECTED Nasal C.pneumoniae (PCR) NOT DETECTED [place] Human Metapneumo PCR NOT DETECTED Nasal M.pneumoniae (PCR) NOT DETECTED Nasal SARS-CoV-2 (PCR) DETECTED A PD Medical Decision Making - ED course Complexity details: reviewed results, considered differential, d/w patient ED course: 78-year-old male presents with 3-day history of cough, congestion, c onjunctivitis right eye, decreased Sense of smell and appetite. Initial triage with complaint abdominal pain however he denies any abdominal pain and states that he has been drinking fine but that when he tries to eat he simply finds that he cannot and has no appetite. He is afebrile, he medically stable on arrival to the emergency department. No respiratory distress is noted on exam and he has clear aeration in all lung dimas. There is nothing to suggest pneumonia. His abdominal exam is similarly benign and there is nothing to suggest acute abdomen or obstruction. He is given a liter of IV hydration. His labs demonstrate chronic renal insufficiency unchanged from baseline. There is no other significant or severe electrolyte abnormality noted. He tolerates p.o. trial after dose of Reglan and. Discussed all findings including his positive viral swab for the SARS COVID virus. Discussed Paxlovid which she declines after reviewing past current evidence for its use. Will discharge with medication for symptomatic management as well as a course of a topical antibiotic ophthalmologic ointment for his conjunctivitis. Will encourage careful follow-up with primary care return to the emergency department as needed. Departure - Departure Disposition: 01 Home, Self Care Clinical Impression: SARS-CoV-2 positive Conjunctivitis Qualifiers: Conjunctivitis type: acute Laterality: right Instructions: ED Conjunctivitis Nonspecific, ED Viral Syndrome Prescriptions: Erythromycin Ophth Oint (3.5) [Ilotycin Ophth Oint (3.5)] 1 applic RIGHTEYE TID 5 Days #3.5 gm Ondansetron Odt [Zofran] 4 mg TL Q6H PRN #10 tablet PRN Reason: Nausea / Vomiting ONDANSETRON ODT Prepack 2 [ZOFRAN ODT Prepack 2] 4 mg TL Q6H #20 tablet Comments: Thank you for allowing us to care for you today at [facility]. Today in the emergency department you were diagnosed with the SARS COVID virus as well as with conjunctivitis, likely viral, of your right eye. I written a prescription for a topical antibiotic ointment to begin using 3 times daily to your right eye for the next 5 days.I have also written a prescription for medication you can take at home for nausea. Please drink plenty fluids and get plenty of rest over the course of the next few days. Please follow-up with your primary care doctor soon as possible concerning your ER evaluation. If it anytime you have new or worsening symptoms, particularly if you begin to develop any chest pain, shortness of breath, please return to the emergency department immediately for reevaluation. Forms: PCP List Discharge Date/Time: 03/15/24 04:13
[2024-03-15] MEDS: METOCLOPRAMIDE 10 MG/2 ML VIAL IVP STA (02:40)
[2024-03-15] MEDS: SODIUM CHLORIDE 0.9% 1,000 ML IV STA (02:40)
[2024-03-15] MEDS: ERYTHROMYCIN OPHTH OINT 1 GM TUBE RIGHTEYE STA (02:40)
[2024-03-15 03:38] LABS: CORONAVIRUS 229E-RESP PCR NOT DETECTED; CORONAVIRUS HKU1-RESP PCR NOT DETECTED; CORONAVIRUS NL63-RESP PCR NOT DETECTED; CORONAVIRUS OC43-RESP PCR NOT DETECTED
[2024-03-15 03:39] LABS: B. PARAPERTUSSIS- RESP PCR PAN NOT DETECTED; B. PERTUSSIS- RESP PCR PANEL NOT DETECTED; C. PNEUMONIAE- RESP PCR PANEL NOT DETECTED; HUMAN METAPNEUMOVIRUS NOT DETECTED; INFLUENZA A- RESP PCR PANEL NOT DETECTED; INFLUENZA B - RESP PCR PANEL NOT DETECTED; M. PNEUMONIAE- RESP PCR PANEL NOT DETECTED; PARAINFLUENZA VIRUS 1 NOT DETECTED; PARAINFLUENZA VIRUS 2 NOT DETECTED; PARAINFLUENZA VIRUS 3 NOT DETECTED; PARAINFLUENZA VIRUS 4 NOT DETECTED; RHINOVIRUS/ENTEROVIRUS NOT DETECTED; RSV- RESP PCR PANEL NOT DETECTED; SARS-CoV-2 -RESP PCR PANEL DETECTED
[2024-03-15 04:11] VITALS: BP 153/66; O2SAT 98
== END 2024-03-15 04:13 | disposition home or self-care (01) ==
LOC: ED 22:55
DX: U07.1 COVID-19 (principal); H10.9 Unspecified conjunctivitis; I12.9 Hypertensive chronic kidney disease with stage 1 through stage 4 chronic kidney disease, or unspecified chronic kidney disease; E11.22 Type 2 diabetes mellitus with diabetic chronic kidney disease; N18.9 Chronic kidney disease, unspecified; N05.9 Unspecified nephritic syndrome with unspecified morphologic changes; R80.9 Proteinuria, unspecified; D70.9 Neutropenia, unspecified; D63.1 Anemia in chronic kidney disease
CPT/HCPCS: 36415; 80048; 80053; 81003; 82570; 83690; 84156; 85025; 87633; 96361; 96374; 99284; J2765; J3490; 81001; 87086

== ENCOUNTER 2024-03-18 23:13 | Outpatient (CLI) | payer MEDICARE | END 2024-03-18 23:14 | disposition EMS.NT | LOC: EMS 23:13 | DX: Z03.89 Encounter for observation for other suspected diseases and conditions ruled out (principal) ==

== ENCOUNTER 2024-03-23 18:20 | Outpatient (CLI) | payer MEDICARE | END 2024-03-23 23:59 | disposition EMS.NT | LOC: EMS 18:20 | DX: U07.1 COVID-19 (principal) ==

== ENCOUNTER 2024-03-23 20:13 | Inpatient (IN) | payer MEDICARE ==
--- NOTE | 2024-03-23 20:31 | ED Physician Documentation ---
History of Present Illness - Stated complaint Stated Complaint: WEAKNESS - Chief complaint Chief Complaint: Abd Pain - Additonal information Additional information: 78-year-old male with history of hypertension, hypercholesterolemia, GERD pre sents emergency department for generalized malaise. Patient said that he started experiencing flulike symptoms on March 09 he tested positive for COVID on March 13 and feels like he has not improved or recovered. Patient reports that he overall feels like he is actually getting worse. He says when he drinks water he feels like he is choking and starts to feel like he is having some shortness of breath. He feels very weak with generalized malaise and a constant queasy feeling. He was prescribed Zofran but has not been taking it because he feels like it makes his urinary stream weak. He does not believe he has had any recent fevers or chills and is not coughing up anything. PD PAST MEDICAL HISTORY - Past Medical History Past Medical History: Yes Cardiovascular: Hypertension, High cholesterol Respiratory: None Neuro: Headaches, Migraines Endocrine/Autoimmune: Type 2 diabetes GI: GERD : None HEENT: None Psych: None Musculoskeletal: None Derm: None - Past Surgical History Past Surgical History: Yes HEENT: Cataracts - Present Medications Home Medications: Ambulatory Orders Medication Instructions Recorded Confirmed Atorvastatin [Lipitor] 10 mg PO DAILY 03/17/21 03/17/21 Butalbit/Acetamin/Caff/Codeine 1 cap PO Q6HR PRN 03/17/21 03/17/21 [Fioricet-Cod 83-177-86-30 Cap] Pantoprazole Sodium 40 mg PO BID 03/17/21 03/17/21 Steroids 03/17/21 clindamycin HCL [Clindamycin HCl] 300 mg PO TID 03/17/21 03/17/21 lisinopriL [Lisinopril] 5 mg PO DAILY 03/17/21 03/17/21 Amox/Clav 875/125 [Augmentin] 1 each PO Q12H #20 tablet 03/18/21 HYDROcod/ACETAM 5/325 [[place] 5/325] 1 - 2 tablet PO Q6H PRN #14 tablet 03/18/21 Erythromycin Ophth Oint (3.5) 1 applic RIGHTEYE TID 5 Days #3.5 03/15/24 [Ilotycin Ophth Oint (3.5)] gm ONDANSETRON ODT Prepack 2 [ZOFRAN 4 mg TL Q6H #20 tablet 03/15/24 ODT Prepack 2] Ondansetron Odt [Zofran] 4 mg TL Q6H PRN #10 tablet 03/15/24 - Allergies Allergies/Adverse Reactions: Allergies Allergy/AdvReac Type Severity Reaction Status Date / Time ezetimibe Allergy Unknown Verified 03/23/24 20:26 metformin Allergy Unknown Verified 03/23/24 20:26 - Social History Does the pt smoke?: No Smoking Status: Never smoker Does the pt drink ETOH?: Yes Does the pt have substance abuse?: No - Immunizations Immunizations are current?: Yes - POLST Patient has POLST: No PD ED PE NORMAL - Vitals Vital signs reviewed: Yes - General General: Alert and oriented X 3, No acute distress, Well developed/nourished - HEENT HEENT: Other (right chronic eyelid droop) - Cardiac Cardiac: RRR - Respiratory Respiratory: No respiratory distress - Abdomen Abdomen: Normal bowel sounds, Soft, Non tender, Non distended, No organomegaly - Derm Derm: Normal color, Warm and dry, No rash - Extremities Extremities: No edema - Neuro Neuro: Alert and oriented 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 Relevant findings are: Rate: Rate (enter#) (60) Rhythm: NSR [place]: Normal Intervals: Prolonged [place] QRS: Normal Ischemia: Other (Borderline repolarization abnormality) Computer interpretation: Agree with computer - Labs Labs: Laboratory Tests 03/23/24 03/23/24 03/23/24 20:44 20:44 22:43 WBC 6.3 RBC 4.41 L Hgb 12.9 L Hct 38.6 L MCV 87.5 MCH 29.3 MCHC 33.4 RDW 12.4 Plt Count 255 MPV 8.2 Neut # (Auto) 3.0 Lymph # (Auto) 2.4 [place] # (Auto) 0.5 Eos # (Auto) 0.2 Baso # (Auto) 0.0 Absolute Nucleated RBC 0.00 Nucleated RBC % 0.0 Sodium 118 L* 120 L* Potassium 4.1 Chloride 85 L Carbon Dioxide 26 Anion Gap 7.0 BUN 12 Creatinine 1.2 Estimated GFR (MDRD) 58 L Glucose 144 H Calcium 9.8 Magnesium 1.5 L Total Bilirubin 1.0 AST 43 H ALT 39 Alkaline Phosphatase 88 Total Protein 7.5 Albumin 4.5 Globulin 3.0 Albumin/Globulin Ratio 1.5 Lipase 69 PD Medical Decision Making - ED course ED course: 78-year-old male presents emergency department for generalized malaise fatigue dizziness after COVID. Patient is not experiencing sore throat, chest pain, shortness of breath, or upper respiratory infection symptoms. Labs were complete for further evaluation and no leukocytosis no significant anemia and he is found to have critical hyponatremia, sodium level 118. His kidney function appears to be okay, BUN 12, creatinine 1.2, GFR 58 magnesium is slightly suppressed at 1.5 he was given 400 mg p.o. magnesium oxide. Patient is not on diuretics he says that he has been drinking slightly less than he normally does and has not had any recent changes in his medications no recent antibiotics or other new supplements. He was given 50 mL of hypertonic saline and about a liter of IV fluids of normal saline. I called the telemetry hospitalist to give report and he asked that we repeat his sodium level before admitting him for possible discharge from the emergency department. Patient does not have significant improvement of symptoms after receiving IV fluids and still is feeling quite weak with generalized malaise. I have ordered a repeat sodium level and given report to Dr. Rahman who will reach out to telemetry hospitalist after repeat sodium level has gone back. Patient is aware that he benefit from hospitalization and is agreeable to stay. Departure - Departure Clinical Impression: Hyponatremia Forms: PCP List
[2024-03-23 20:49] LABS: BASOPHILS % (AUTO) 0.5 %; EOSINOPHILS # (AUTO) 0.2 10^3/uL (0.0-0.7); EOSINOPHILS % (AUTO) 3.8 %; HCT - HEMATOCRIT 38.6 % (42.0-52.0); HGB - HEMOGLOBIN 12.9 g/dL (14.0-18.0); LYMPHOCYTES # (AUTO) 2.4 10^3/uL (1.5-3.5); LYMPHOCYTES % (AUTO) 38.1 %; MEAN CORPUSCULAR HEMOGLOBIN 29.3 pg (27.0-31.0); MEAN CORPUSCULAR HGB CONC 33.4 g/dL (32.0-36.0); MEAN CORPUSCULAR VOLUME 87.5 fL (80.0-94.0); MEAN PLATELET VOLUME 8.2 fL (7.4-11.4); MONOCYTES # (AUTO) 0.5 10^3/uL (0.0-1.0); MONOCYTES % (AUTO) 8.5 %; PLT - PLATELET COUNT 255 10^3/uL (130-450); RED BLOOD COUNT 4.41 10^6/uL (4.70-6.10); RED CELL DISTRIBUTION WIDTH 12.4 % (12.0-15.0); WHITE BLOOD COUNT 6.3 x10^3/uL (4.8-10.8)
[2024-03-23] MEDS: PROCHLORPERAZINE 10 MG/2 ML VIAL IVP STA (21:07)
[2024-03-23] MEDS: SODIUM CHLORIDE 0.9% 1,000 ML IV ONE (21:07)
[2024-03-23 21:09] LABS: MAGNESIUM 1.5 mg/dL (1.7-2.3)
[2024-03-23 21:11] LABS: ALBUMIN 4.5 g/dL (3.2-5.5); ALBUMIN/GLOBULIN RATIO 1.5 (1.0-2.2); CALCIUM 9.8 mg/dL (8.5-10.3); CREATININE 1.2 mg/dL (0.6-1.3); POTASSIUM 4.1 mmol/L (3.5-4.5); TOTAL PROTEIN 7.5 g/dL (6.4-8.9)
[2024-03-23] MEDS: SODIUM CHLORIDE 3% HYPERTONIC 50 ML IV SCH (21:32)
[2024-03-23] MEDS: MAGNESIUM OXIDE 400 MG TABLET PO STA (21:32)
[2024-03-23] MEDS: SODIUM CHLORIDE 0.9% 1,000 ML IV SCH (22:12)
--- NOTE | 2024-03-23 23:33 | ED Physician Documentation ---
ED Addendum - Addendum Addendum: 03/23/24 23:33 Patient endorsed to me by nurse practitioner Allen awaiting repeat sodium labs. Sodium remained stable at 120. Plan for admission for hyponatremia and weakness. Disposition admit Impression 1 hyponatremia 2 weakness Condition fair
[2024-03-24] MEDS ORDERED: SODIUM CHLORIDE FLUSH 0.9% 10 ML SYRINGE IVP PRN (00:10)
[2024-03-24] MEDS ORDERED: ONDANSETRON 4 MG/2 ML VIAL IVP PRN (00:20)
[2024-03-24] MEDS ORDERED: ACETAMINOPHEN 325 MG TABLET PO PRN (00:20)
--- NOTE | 2024-03-24 00:31 | HISTORY & PHYSICAL EXAMINATION ---
Chief Complaint - Chief Complaint Chief Complaint: Generalized weakness History of Present Illness - Admitted From Admitted From:: Home - History Obtained From Records Reviewed: Yes History obtained from: Patient, ER Provider and EMS and patient Exam Limitations: None - History of Present Illness HPI Comment/Other: "78-year-old male with history of hypertension, hypercholesterolemia, GERD presents emergency department for generalized malaise. Patient said that he started experiencing flulike symptoms on March 09 he tested positive for COVID on March 13 and feels like he has not improved or recovered. Patient reports that he overall feels like he is actually getting worse. He says when he drinks water he feels like he is choking and starts to feel like he is having some shortness of breath. He feels very weak with generalized malaise and a constant queasy feeling. He was prescribed Zofran but has not been taking it because he feels like it makes his urinary stream weak. He does not believe he has had any recent fevers or chills and is not coughing up anything." Patient seen and examined with televideo, he was informed that i am based in [place] and he consented for telemedicine encounter. He denies any fv=ever, cough, chest pain, complaints of weakness decrease po intake for last few days, already given 3% hypertonic saline by Er provider. 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 and he status he is in a veetative state does not want to prolong life, also wants to think more about his advance directives, informed that for tonight he will be full code History - Past Medical History Cardiovascular: reports: Hypertension, High cholesterol Respiratory: reports: None Neuro: reports: Headaches, Migraines Endocrine/Autoimmune: reports: Type 2 diabetes GI: reports: GERD : reports: None HEENT: reports: None Psych: reports: None Musculoskeletal: reports: None Derm: reports: None MRSA Hx?: Yes - Past Surgical History HEENT: reports: Cataracts - POLST Patient has POLST: No Meds/Allgy - Home Medications Home Medications: Ambulatory Orders Medication Instructions Recorded Confirmed Atorvastatin [Lipitor] 10 mg PO DAILY 03/17/21 03/17/21 Butalbit/Acetamin/Caff/Codeine 1 cap PO Q6HR PRN 03/17/21 03/17/21 [Fioricet-Cod 30-643-40-30 Cap] Pantoprazole Sodium 40 mg PO BID 03/17/21 03/17/21 Steroids 03/17/21 clindamycin HCL [Clindamycin HCl] 300 mg PO TID 03/17/21 03/17/21 lisinopriL [Lisinopril] 5 mg PO DAILY 03/17/21 03/17/21 Amox/Clav 875/125 [Augmentin] 1 each PO Q12H #20 tablet 03/18/21 HYDROcod/ACETAM 5/325 [[place] 5/325] 1 - 2 tablet PO Q6H PRN #14 tablet 03/18/21 Erythromycin Ophth Oint (3.5) 1 applic RIGHTEYE TID 5 Days #3.5 03/15/24 [Ilotycin Ophth Oint (3.5)] gm ONDANSETRON ODT Prepack 2 [ZOFRAN 4 mg TL Q6H #20 tablet 03/15/24 ODT Prepack 2] Ondansetron Odt [Zofran] 4 mg TL Q6H PRN #10 tablet 03/15/24 - Allergies Allergies/Adverse Reactions: Allergies Allergy/AdvReac Type Severity Reaction Status Date / Time ezetimibe Allergy Unknown Verified 03/23/24 20:26 metformin Allergy Unknown Verified 03/23/24 20:26 Review of Systems - Constitutional Constitutional: reports: Malaise, Weakness, Poor appetite Prior Level of Functionality: Independent with ADL Exam - Vital Signs Vital Signs: Vital Signs x48h Temp Pulse Resp BP Pulse Ox 03/23/24 23:00 62 18 157/61 H 96 03/23/24 21:44 65 18 162/75 H 96 03/23/24 20:35 58 L 03/23/24 20:21 36.6 C 59 L 19 152/57 H 99 - Physical Exam General Appearance: positive: No acute distress, Alert Eyes Bilateral: positive: Normal inspection ENT: positive: ENT inspection nml, Pharynx nml Neck: positive: Thyroid nml Respiratory: positive: Breath sounds nml Cardiovascular: positive: Regular rate & rhythm Rectal: positive: Stool - heme NEG Back: positive: Nml inspection, CVA tenderness (R) Skin: positive: Color nml, No rash Extremities: positive: Non-tender, Full ROM Neurologic/Psychiatric: positive: Oriented x3, CN's nml (2-12) Sepsis Event Note (H) - Evaluation Current Stage of Sepsis: Ruled out Conclusion/Plan - Problem List (1) Hyponatremia Conclusion/Plan: 78 yr male being admitted for impression 1.Hyponatremia - Most likely from Hypovolemia secondary to poor po intake agree with gentle hydration and check urine osm and seum osm as well as tsh and cortisol and urine sodium levels, telemonitor 2. DM - Stable allergic to metformin, due to poor intake would defer accuchecks for now 3. Hypercholesterlemia continue lipitor 4. Hypomagmesemia Mag suilfate to be given 5. Generalized weakenss Likeluy post covid with electrolyte imabalance and decrease po intake supporitve care 6.Covid recent with no repiratory symptoms, no fever, no chills and > 12 days ago so no need for any isolation, would recommend hospital policy for covid 7.Dvt Prophylaxis SCS - Lab Results Fish Bones: 03/23/24 20:44 03/23/24 22:43
[2024-03-24] MEDS: MAGNESIUM SULFATE 2 GRAM 2 GM/50 ML BAG IV ONE (01:20)
[2024-03-24] MEDS: SODIUM CHLORIDE FLUSH 0.9% 10 ML SYRINGE IVP SCH (03:13)
[2024-03-24 05:55] LABS: ALBUMIN 4.1 g/dL (3.2-5.5); ALBUMIN/GLOBULIN RATIO 1.5 (1.0-2.2); CALCIUM 9.5 mg/dL (8.5-10.3); CREATININE 1.1 mg/dL (0.6-1.3); POTASSIUM 4.2 mmol/L (3.5-4.5); TOTAL PROTEIN 6.8 g/dL (6.4-8.9)
[2024-03-24 06:07] LABS: THYROID STIMULATING HORMONE 1.34 uIU/mL (0.34-5.60)
[2024-03-24] MEDS: HYDROcod/ACETAM 5/325 MG TABLET PO PRN (08:31)
[2024-03-24] MEDS: ATORVASTATIN 10 MG TABLET PO SCH (08:33)
[2024-03-24] MEDS: lisinopriL 5 MG TABLET PO SCH (08:33)
[2024-03-24] MEDS: PANTOPRAZOLE 40 MG TABLET PO SCH (08:34)
--- NOTE | 2024-03-24 11:37 | ADVANCE CARE PLANNING NOTE ---
Advance Care Planning - Planning Encounter Date: 03/24/24 Time: 08:00 Purpose: establsih code status Parties in Attendance: , patient, hospitalist and PA student (yovani) Decisional Capacity of the Patient: And oriented to person, place, time and situation - Encounter Subjective/Patient's Story: 78-year-old Indian male who has been living on [facility] for the last 12 years. 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 Met and his in [place]. [place]. The 's Mom and dad owned property [place] for over 40 years. When they , the property was passed on to her and she and her came to retire here. They have 2 children. 1 child lives in [place], and [place]. He states the family has a good relationship and do see each other infrequently. He is followed by Sherif Phillip MD through [facility] branch on [facility]. [phone]. . He is independent with activities of daily living. Still drives a car. 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 Pays bills. Does not use any durable medical equipment. He has not discussed Advanced Care Planning with his or children as a formal conversation. He has not really considered end of life issues up to this point. There is no formally designated DPOA-HC in paper but he states, as his , he would designate her to be his DPOA. He was told that his sodium was low by his PCP with his last blood work and is vague about when that was. he doesn't remember a work up for that and denies alcohol abuse, liver disease, CHF in his history. He is not on an SSRI. he does acknowledge that he just feels tired all the time. It has been a while since he felt like he was himself. Then when he had the COVID earlier this month which is made everything worse. He has not been able to recover. and discussing CODE STATUS, the patient states that he would like everything done. He wants IV fluids, medications, cardiac monitoring. If he has to go to the ICU for pressors or possibly BiPAP he would like that. If he needs blood transfusions or surgery he would like that. However if we do everything, and he does not recover and he still passes away and does not have a pulse or pressure, he wants to be DO NOT RESUSCITATE. Objective/Medical Story: 78-year-old male with history of hypertension, hypercholesterolemia, GERD presents emergency department for generalized malaise. Patient said that he started experiencing flulike symptoms on March 09 he tested positive for COVID on March 13 and feels like he has not improved or recovered. Patient reports that he overall feels like he is actually getting worse. He says when he drinks water he feels like he is choking and starts to feel like he is having some shortness of breath. He feels very weak with generalized malaise and a constant queasy feeling. He was prescribed Zofran but has not been taking it because he feels like it makes his urinary stream weak. He does not believe he has had any recent fevers or chills and is not coughing up anything." Patient seen and examined with televideo, he was informed that i am based in [place] and he consented for telemedicine encounter. He denies any fv=ever, cough, chest pain, complaints of weakness decrease po intake for last few days, already given 3% hypertonic saline by Er provider. 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, we discussed code status and he status he is in a vegetative state does not want to prolong life, also wants to think more about his advance directives, informed that, for the night of admission, he will be full code - Past Medical History Cardiovascular: reports: Hypertension, High cholesterol Respiratory: reports: None Neuro: reports: Headaches, Migraines Endocrine/Autoimmune: reports: Type 2 diabetes GI: reports: GERD : reports: None HEENT: reports: None Psych: reports: None Musculoskeletal: reports: None Derm: reports: None MRSA Hx?: Yes - Past Surgical History HEENT: reports: Cataracts Over the course of the night he has received 75 cc of normal saline after the hypertonic saline.Sodium stable at 118. By 5:30 this morning he was 121. At 11:00 he was 119. Fasting cortisol level was 4.3. Normal will be 5-23. TSH is normal at 1.34. Goals of Care: Currently it is simply to get that is this current acute episode of care. He would then like to return home. Because he has not thought about end-of-life care or management, he he really has not thought about what the cutoff would be if you were no longer able to take care of himself. Plan: 1. Change his CODE STATUS from full code to DO NOT RESUSCITATE. We have filled out a POLST form. A copy will be placed in the chart and the original will return home to him. I suggested they put it on the refrigerator so anybody could see it if there was an emergency. 2. I have also suggested that he make sure that his is his designated power of attorney at law and possibly fill out a formal piece of paper to that and that is notarized. And to consider one of his children to be a second person to contact in case his cannot speak for him due to her being out of town or not available. 3. I have also suggested that he and his and children sit down and discuss advance care planning. To think about those preliminary thought process is about what it would be like to have a disabled life or he would no longer be able to take care of himself. How much disability is he willing to live with? Is or at any point he would consider living in a alf facility or not? Does he have the finances to live in a alf facility or assisted living facility? Does he have the finances to have someone take care of him at home? I explained that these are preliminary questions. He probably would not be able to answer any of this right now. But to slowly start gathering that information as he moves forward in his life over the next year or 2. Code Status: Do Not Attempt Resuscitation Time spent on advance care plannin minutes
--- NOTE | 2024-03-24 11:47 | PHARMACY PROGRESS NOTE ---
- Best Possible Medication History Admit Date and Time: 03/24/24 0011 Processed by: Pharmacy Medications reviewed in ED?: No Medication History completed: Yes Patient Interview: Pt unable to participate Secondary Source(s): Pharmacy records (Medication reconciliation completed via insurance records and by calling patient's pharmacy. Unable to reach patient or patient's via phone. Aerosol Contact Precaution sign outside of room), Insurance records As the person ultimately responsible for medication therapy, providers are able to order a medication from an existing home medication list in [facility] via the "Reconcile Routine" prior to Confirmation of that medication by aircraft life support fitter. Such practice is discouraged except when the physician, in their clinical judgment, deems that a medical need exists for a medication without regard to previous use.
[2024-03-24] MEDS: SODIUM CHLORIDE 3% HYPERTONIC 100 ML IV SCH (12:48)
[2024-03-24 13:22] LABS: ESTIMATED AVERAGE GLUCOSE 192 mg/dL (70-100); HEMOGLOBIN A1c% 8.3 % (4.27-6.07)
--- NOTE | 2024-03-24 14:46 | PROVIDER PROGRESS NOTE ---
Assessment/Plan - Problem List (1) Hyponatremia Assessment/Plan: * Unknown etiology, patient has no history of CHF, EtOH abuse, or cirrhosis. Kidney and liver function tests wnl. Per patient, he had some outpatient lab work done recently that noted low sodium however he denies that any further testing was done. * Na increased from 118 to 121 over 8 hours. Prior to admission was given 50mL 3%NS and 1L NS in ED with minimal improvement in symptoms. Na decreased to 119 as of 11am today, will give 100mL 3%NS and check urine and serum osmolality. Informed patient that serum Na needs to be increased very slowly to avoid osmotic demyelination syndrome. * Spoke with patient's PCP who states that patient has a history of mild chronic hyponatremia but that it has never been <130; she will be referring him to an fermenter for extensive hyponatremia work up. (2) Weakness Assessment/Plan: Likely due to recent COVID infection and electrolyte derangement (3) Diabetes mellitus Qualifiers: Diabetes mellitus type: type 2 Diabetes mellitus residential insulin use: unspecified long term care phlebotomist insulin use status Diabetes mellitus complication status: without complication Qualified Code(s): E11.9 - Type 2 diabetes mellitus without complications Assessment/Plan: Stable, no pharmaceutical BG control indicated at this time. Home medicine includes Jardiance. Patient's medical chart lists an allergy to Metformin. BG marley ve been 110-140s, plan to start sliding scale insulin if BG is consistently above 140. (4) Do not resuscitate discussion Assessment/Plan: Attending physician had advanced care discussion, see advanced care plan dictation for further details. - Current Meds Current Meds: Current Medications Generic Name Dose Route Start Last Admin Trade Name Freq PRN Reason Stop Dose Admin Hydrocodone Bitart/Acetaminophen 1 tab 03/24/24 00:20 03/24/24 08:31 Hydrocod/Acetam 5/325 Mg Tablet PO 1 tab Q4HR PRN Administration Pain 5 to 7 Atorvastatin Calcium 10 mg 03/24/24 09:00 03/24/24 08:33 Atorvastatin 10 Mg Tablet PO 10 mg DAILY BULMARO Administration Sodium Chloride 1,000 mls @ 75 mls/hr 03/23/24 22:00 03/24/24 12:47 Normal Saline 0.9% IV Infused .[id number] BULMARO Infusion Sodium Chloride 100 mls @ 30 mls/hr 03/24/24 12:00 03/24/24 12:48 Sodium Chloride 3% Hypertonic IV 03/24/24 15:19 30 mls/hr .[id number] BULMARO Administration Lisinopril 5 mg 03/24/24 09:00 03/24/24 08:33 Lisinopril 5 Mg Tablet PO 5 mg DAILY BULMARO Administration Pantoprazole Sodium 40 mg 03/24/24 09:00 03/24/24 08:34 Pantoprazole 40 Mg Tablet PO 40 mg BID BULMARO Administration Sodium Chloride 10 ml 03/24/24 01:00 03/24/24 08:34 Sodium Chloride Flush 0.9% 10 Ml Syringe IVP Not Given 0100,0900,1700 BULMARO - Lab Result Lab results reviewed: Yes Fish Bone Diagrams: 03/23/24 20:44 03/24/24 10:55 - EKG Results EKG Interpreted Independently: Yes - Additional Planning Condition/Complexity: Stable Plan Discussed with:: Patient, Family Subjective - Subjective Patient Reports: Other (He reports no improvement in his weakness despite receiving hypertonic saline in ED and 1L NS during admission. Denies any nausea but reports lack of appetite.) Objective Vital Signs: Vital Signs - 24 hr 03/23/24 03/23/24 03/23/24 20:21 20:35 21:44 Temperature 36.6 C Heart Rate 59 L 58 L 65 Heart Rate [ Brachial] Heart Rate [ Monitoring electrodes] Respiratory 19 18 Rate Blood Pressure 152/57 H 162/75 H Blood Pressure [Left Brachial artery] Blood Pressure [Right Brachial artery] O2 Saturation 99 96 03/23/24 03/24/24 03/24/24 23:00 00:37 01:00 Temperature 36.3 C L Heart Rate 62 59 L Heart Rate [ Brachial] Heart Rate [ 60 Monitoring electrodes] Respiratory 18 18 16 Rate Blood Pressure 157/61 H 163/68 H Blood Pressure 168/73 H [Left Brachial artery] Blood Pressure [Right Brachial artery] O2 Saturation 96 98 96 03/24/24 03/24/24 03/24/24 05:00 07:36 13:00 Temperature 36.5 C 36.4 C L 36.6 C Heart Rate Heart Rate [ 56 L 63 Brachial] Heart Rate [ 59 L Monitoring electrodes] Respiratory 16 20 16 Rate Blood Pressure Blood Pressure 149/69 H [Left Brachial artery] Blood Pressure 150/70 H 160/79 H [Right Brachial artery] O2 Saturation 97 98 95 Oxygen O2 Source Room air I&O (Last 24 Hrs): Intake and Output Totals x24h 03/22/24 03/23/24 03/24/24 23:59 23:59 23:59 Intake Total 551.25 1648.75 Output Total 2625 Balance 551.25 -976.25 General: Alert, Oriented x3, No acute distress, Other (Appears tired.) HEENT: Other (Atrophic blind right eye) Cardiovascular: Regular rate, No murmurs Respiratory: No respiratory distress, Breath sounds nml Extremities: No edema, Normal pulses Skin: No rashes - Results Results: Laboratory Results WBC 6.3 x10^3/uL (4.8-10.8) 03/23/24 20:44 RBC 4.41 10^6/uL (4.70-6.10) L 03/23/24 20:44 Hgb 12.9 g/dL (14.0-18.0) L 03/23/24 20:44 Hct 38.6 % (42.0-52.0) L 03/23/24 20:44 MCV 87.5 fL (80.0-94.0) 03/23/24 20:44 MCH 29.3 pg (27.0-31.0) 03/23/24 20:44 MCHC 33.4 g/dL (32.0-36.0) 03/23/24 20:44 RDW 12.4 % (12.0-15.0) 03/23/24 20:44 Plt Count 255 10^3/uL (130-450) 03/23/24 20:44 MPV 8.2 fL (7.4-11.4) 03/23/24 20:44 Neut # (Auto) 3.0 10^3/uL (1.5-6.6) 03/23/24 20:44 Lymph # (Auto) 2.4 10^3/uL (1.5-3.5) 03/23/24 20:44 Bibb # (Auto) 0.5 10^3/uL (0.0-1.0) 03/23/24 20:44 Eos # (Auto) 0.2 10^3/uL (0.0-0.7) 03/23/24 20:44 Baso # (Auto) 0.0 10^3/uL (0.0-0.1) 03/23/24 20:44 Absolute Nucleated RBC 0.00 x10^3/uL 03/23/24 20:44 Nucleated RBC % 0.0 /100WBC 03/23/24 20:44 Sodium 119 mmol/L (135-145) L* 03/24/24 10:55 Potassium 4.2 mmol/L (3.5-4.5) 03/24/24 05:32 Chloride 91 mmol/L (101-111) L 03/24/24 05:32 Carbon Dioxide 24 mmol/L (21-32) 03/24/24 05:32 Anion Gap 6.0 (6-13) 03/24/24 05:32 BUN 12 mg/dL (6-20) 03/24/24 05:32 Creatinine 1.1 mg/dL (0.6-1.3) 03/24/24 05:32 Estimated GFR (MDRD) 65 (>89) L 03/24/24 05:32 Glucose 112 mg/dL (74-104) H 03/24/24 05:32 Estimat Average Glucose 192 mg/dL (70-100) H 03/23/24 20:24 Hemoglobin A1c % 8.3 % (4.27-6.07) H 03/23/24 20:24 Calcium 9.5 mg/dL (8.5-10.3) 03/24/24 05:32 Magnesium 1.5 mg/dL (1.7-2.3) L 03/23/24 20:44 Total Bilirubin 1.0 mg/dL (0.2-1.0) 03/24/24 05:32 AST 39 IU/L (10-42) 03/24/24 05:32 ALT 36 IU/L (10-60) 03/24/24 05:32 Alkaline Phosphatase 83 IU/L (42-121) 03/24/24 05:32 Total Protein 6.8 g/dL (6.4-8.9) 03/24/24 05:32 Albumin 4.1 g/dL (3.2-5.5) 03/24/24 05:32 Globulin 2.7 g/dL (2.1-4.2) 03/24/24 05:32 Albumin/Globulin Ratio 1.5 (1.0-2.2) 03/24/24 05:32 Lipase 69 U/L (11-82) 03/23/24 20:44 TSH 1.34 uIU/mL (0.34-5.60) 03/24/24 05:32 Random Cortisol 4.3 ug/dL 03/24/24 05:32 Urine Sodium 66.9 mmol/L 03/24/24 02:10 Sepsis Event Note (H) - Evaluation Current Stage of Sepsis: Ruled out ABX Reporting Has patient been on IV antibiotics over the past 48 hours?: No
[2024-03-24] MEDS: GABAPENTIN 100 MG CAPSULE PO SCH (20:20)
[2024-03-25 04:56] LABS: CALCIUM 9.6 mg/dL (8.5-10.3); CREATININE 1.2 mg/dL (0.6-1.3); POTASSIUM 4.4 mmol/L (3.5-4.5)
--- NOTE | 2024-03-25 14:07 | PROVIDER PROGRESS NOTE ---
Subjective - Prog Note Date Prog Note Date: 03/25/24 Prog Note Time: 14:05 - Subjective Pt reports feeling: Improved Subjective: Mr. Eulalio Ren states he is feeling improved since he came in on 03/23. His nausea and abdominal pain have resolved and he is feeling stronger. He denies headache, blurred vision, chest pain, palpitations, or weakness in his arms or legs. He reports feeling fatigued since his recent COVID-19 infection, with a positive test on 03/13 and symptoms beginning a few days prior. He denies any increase in thirst or urinary frequency in the past few weeks, uses a timer to make sure he drinks 8 glasses of water every day at home. He was eating a low sodium diet, aiming for 2,000 mg/daily, as he believed it was good for his health. He reports a decrease in appetitie following his COVID 19 infection, st ates he can taste and smell food. He reports difficulty drinking stating he gets out of breath if he drinks for more than a few sips, he denies difficulty swallowing. He presented on 03/23 to the ED with nausea, abdominal pain and weakness with a sodium of 118. He was treated with an infusion of NS and bolus of 3% saline 100 ml in the ED and transfered to the Med/surg. He was given an additional bolus of 3% saline 100 ml to address his hyponatremia and continued on NS infusion. His primary care provider with [facility] was contacted 03/24. She noted that his sodium has been chronically low at 132 for several years. But because it was stable there has been no workup. She confirms that he has no history of liver disease, cirrhotic or otherwise. No history of congestive heart failure. No history of SIADH. His morning cortisol level was 4.3 on 03/24 which is below normal. Usually adrenal insufficiency is not true a diagnosis unless the cortisol level is less than 3. His sodium has increased to 123 and his potassium has increased from 4.1 to 4.4. While his potassium is still within normal limits, he has not recieved any therapy that should lead to an increase in potassium. His urine sodium is 66.9. The elevated urine sodium, hyponatremia, increase in potassium and low morning cortisol suggest adrenal insufficiency may be the cause of his hyponatremia. He has already contacted his PCP, Dr. Leodan Cee with the [facility], [place] ([phone]) and has an appointment for 03/30 to follow up and complete a work-up for hyponatremia with possible adrenal insufficiency. He signed a POLST form indicating that he wants life-saving interventions, guided by his and his 's decisions if he has a pulse and HR. If he is pulseless without a BP, he does not want resuscitation attempted. He and his state that they do not communicate with their children as their children do not choose to talk with them. After additional conversation regarding alternate contacts if his is unavailable, a child in [place] was added to the POLST form as an alternate contact. Current Medications - Current Medications Current Medications: Active Medications Generic Name Dose Route Start Last Admin Trade Name Freq PRN Reason Stop Dose Admin Acetaminophen 650 mg 03/24/24 00:20 Acetaminophen 325 Mg Tablet PO Q4HR PRN Pain 1 to 4, or Fever Hydrocodone Bitart/Acetaminophen 1 tab 03/24/24 00:20 03/24/24 08:31 Hydrocod/Acetam 5/325 Mg Tablet PO 1 tab Q4HR PRN Administration Pain 5 to 7 Atorvastatin Calcium 10 mg 03/24/24 09:00 03/25/24 08:05 Atorvastatin 10 Mg Tablet PO 10 mg DAILY BULMARO Administration Gabapentin 100 mg 03/24/24 21:00 03/24/24 20:20 Gabapentin 100 Mg Capsule PO 100 mg HS BULMARO Administration Sodium Chloride 1,000 mls @ 75 mls/hr 03/23/24 22:00 03/25/24 13:55 Normal Saline 0.9% IV 75 mls/hr .[id number] BULMARO Infusion Lisinopril 5 mg 03/24/24 09:00 03/25/24 08:05 Lisinopril 5 Mg Tablet PO 5 mg DAILY BULMARO Administration Ondansetron HCl 4 mg 03/24/24 00:20 Ondansetron 4 Mg/2 Ml Vial IVP Q6HR PRN Nausea / Vomiting Pantoprazole Sodium 40 mg 03/24/24 09:00 03/25/24 08:05 Pantoprazole 40 Mg Tablet PO 40 mg BID BULMARO Administration Sodium Chloride 10 ml 03/24/24 00:10 Sodium Chloride Flush 0.9% 10 Ml Syringe IVP PRN PRN NEEDED PER PROVIDER ORDERS Sodium Chloride 10 ml 03/24/24 01:00 03/25/24 08:05 Sodium Chloride Flush 0.9% 10 Ml Syringe IVP Not Given 0100,0900,1700 BULMARO Atorvastatin [Lipitor] 10 mg PO DAILY 03/17/21 Pantoprazole Sodium 40 mg PO BID 03/17/21 lisinopriL [Lisinopril] 5 mg PO DAILY 03/17/21 Empagliflozin [Jardiance] 10 mg PO DAILY 03/24/24 Gabapentin [Neurontin] 100 mg PO HS 03/24/24 Triamcinolone 0.1% Cream [Kenalog 0.1% Cream] 1 each TOP BID 03/24/24 Objective - Vital Signs/Intake & Output Vital Signs: Vital Signs x48h Temp Pulse Resp BP Pulse Ox 03/25/24 12:26 36.7 C 70 14 148/72 H 96 03/25/24 07:49 36.4 C L 66 16 142/71 H 96 Intake & Output: Intake & Output 03/22/24 03/23/24 03/24/24 03/25/24 23:59 23:59 23:59 23:59 Intake Total 551.25 1968.75 1890 Output Total 4400 1375 Balance 551.25 -2431.25 515 - Objective General Appearance: positive: No acute distress Eyes Bilateral: positive: PERRL, EOMI, Conjunctivae nml, No scleral icterus, Other (Ptosis of the right eye, chronic, able to see out of the eye and hold it partially open with effort. Vision intact both eyes.) ENT: positive: ENT inspection nml, No signs of dehydration Neck: positive: Nml inspection, No JVD. negative: Carotid bruit Respiratory: positive: Chest non-tender, No respiratory distress, Breath sounds nml. negative: Wheezes, Rales, Rhonchi Cardiovascular: positive: Regular rate & rhythm. negative: No murmur, No gallop Abdomen: positive: Non-tender, No organomegaly, Nml bowel sounds, No distention. negative: Tenderness, Guarding, Mass Back: positive: Nml inspection Skin: positive: Color nml, No rash, Warm (Cool extremities, cap refill <3), Dry Extremities: positive: Non-tender, Nml appearance, No pedal edema Neurologic/Psychiatric: positive: Oriented x3, CN's nml (2-12), Motor nml, Sensation nml, Mood/affect nml Comments/Other: Assessment done with patient in bed, muscle tone and movement normal within these parameters - Lab Results Fish Bones: 03/23/24 20:44 03/25/24 04:24 Other Labs: Lab Results x24hrs 03/25/24 03/24/24 03/24/24 Range/Units 04:24 19:13 05:32 Sodium 123 L 122 L (135-145) mmol/L Potassium 4.4 (3.5-4.5) mmol/L Chloride 94 L (101-111) mmol/L Carbon Dioxide 22 (21-32) mmol/L Anion Gap 7.0 (6-13) BUN 10 (6-20) mg/dL Creatinine 1.2 (0.6-1.3) mg/dL Estimated GFR (MDRD) 58 L (>89) Glucose 122 H (74-104) mg/dL Serum Osmolality 258 L (280-301) mOsmol/kg Calcium 9.6 (8.5-10.3) mg/dL Urine Osmolality (.) mOsmol/kg 03/24/24 Range/Units 02:10 Sodium (135-145) mmol/L Potassium (3.5-4.5) mmol/L Chloride (101-111) mmol/L Carbon Dioxide (21-32) mmol/L Anion Gap (6-13) BUN (6-20) mg/dL Creatinine (0.6-1.3) mg/dL Estimated GFR (MDRD) (>89) Glucose (74-104) mg/dL Serum Osmolality (280-301) mOsmol/kg Calcium (8.5-10.3) mg/dL Urine Osmolality 247 (.) mOsmol/kg ABX Reporting Has patient been on IV antibiotics over the past 48 hours?: No Sepsis Event Note (H) - Evaluation Current Stage of Sepsis: Ruled out Assessment/Plan - Problem List (1) Hyponatremia Impression: Serum sodium has increased to 123 from 118 o 03/23 with a goal of 125 for discharge. His morning cortisol level was 4.3 on 03/24 which is below normal. His potassium has increased from 4.1 to 4.4. While his potassium is still within normal limits, he has not recieved any therapy that should lead to an increase in potassium. His urine sodium is 66.9 which is high. The elevated urine sodium, hyponatremia, increase in potassium and low morning cortisol suggest early adrenal insufficiency may be the cause of his hyponatremia which occurs in the setting of chronic mild hyponatremia. He has been advised to follow a high sodium diet. He has already schedule a follow-up with his PCP, Dr. Leodan Cee, on 03/30. Anticipate discharge tomorrow with a goal of 125 for his sodium. He understands that he will need to follow-up closely with his PCP, have regular lab work done, and see endocrinology upon discharge. (2) Hypochloremia Impression: He presented to the ED with hypochloremia, etiology unkown, with a chloride of 85. It has since improved to 94 following the administration of NS for hyponatremia. Will continue to monitor and suggest close follow up with PCP. It may be due to his DM or related to the underlying physiology behind his hyponatremia. (3) Abdominal pain Impression: He reported diffuse abdominal pain on 03/23 with associated nausea and decreased appetitie. He denies any changes in stool, melena, hematochezia, or coffee ground emesis. He states the abdominal pain and nausea have resolved and his appetite is improving. He has been on pantoprazole 40 mg BID and given zofran PRN for nausea. He has not required an zofran today. His abdominal exam is normal with no tenderness to palpation, masses, or organomegally. Qualifiers: Abdominal location: generalized Qualified Code(s): R10.84 - Generalized abdominal pain (4) Weakness Impression: Improved. He reports using a walker in the hospital and he feels more comfortable with it. He did not use any DME and was independent at home prior to admission. He states he has been able to get up and go to the bathroom and the chair with a standby assist only. Will evaluate his need for the walker prior to discharge. (5) Diabetes mellitus Impression: Blood sugars only mildly elevated during admission, his most recent blood glucose 122. However, his A1c is 8.3 suggesting his blood sugars have been higher over the past 3 months. He has been on Jardiance for approx. 1 year, and he will resume his Jardiance upon discharge. Acute elevations during his admission, if they should occur, can be managed with normal insulin. DM may be contributing to his hyponatremia and mild hypochloremia. Qualifiers: Diabetes mellitus type: type 2 Diabetes mellitus manager long term care insulin use: unspecified assisted insulin use status Diabetes mellitus complication st atus: without complication Qualified Code(s): E11.9 - Type 2 diabetes mellitus without complications (6) Do not resuscitate discussion Impression: He has signed a POLST form stating he is DNR should he have a cardiac arrest. He would like interventions, guided by both his and his 's decisions if he is not in cardiac arrest. His is his POA and he listed a son who lives in [place] as an alternate contact, noting that his children have chosen not to communicate with him and his . (7) Hypertension Impression: Chronic HTN on lisinopril 5 mg at home. Systolic BP during admission ranged from 141-168. Managed during admission by continuing his home dose of lisinopril. Qualifiers: Hypertension type: primary hypertension Qualified Code(s): I10 - Essential (primary) hypertension (8) Hyperlipidemia associated with type 2 diabetes mellitus Impression: Hyperlipidemia in the setting of DM2, managed during admission with continuation of his home atorvastatin at 10 mg PO QD.
[2024-03-25] MEDS ORDERED: ZINC OXIDE 20% OINT 30 GM TUBE TOP PRN (18:13)
[2024-03-26 06:42] LABS: CALCIUM 9.7 mg/dL (8.5-10.3); CREATININE 1.2 mg/dL (0.6-1.3); POTASSIUM 4.3 mmol/L (3.5-4.5)
--- NOTE | 2024-03-26 08:15 | Discharge Plan ---
Discharge Plan Problem Reviewed?: Yes Disposition: Home, Self Care Condition: Fair Prescriptions: Sodium Chloride [Salt Tab] 1 gm PO BIDWM #60 tablet Diet: Regular (with salt as needed. no need to restrict) Activity Restrictions: Activity as Tolerated Shower Restrictions: No Driving Restrictions: Yes (no driving) Instruction Topics: Cortisol Blood, Halfway Disease Crisis Dc, Hyponatremia Dc Health Concerns: you have a history of having a low sodium for years according to your primary care provider. Normal sodium is 135 or above. You have been around 132 for quite some time. For a while now, you have been having problems with fatigue, and just not feeling well. On March 09 you started feeling like you had symptoms of the flu and then you tested positive for COVID on March 13. You just cannot seem to recover. You even more weak and more fatigued than you started out with. You feel like you are choking when you drink water and you feel like you are having shortness of breath. You are constantly queasy and do not have an appetite. You came to the emergency room with the symptoms. In the emergency room we found you to have a sodium that was severely low. If your sodium gets too low you could have seizures. You can also get very confused. Your sodium was 118. We think that your sodium was actually being helped by your Jardiance. One of the side effects of Jardiance is to keep salt level is high in your blood. But I think the COVID destabilized you. And you are already low sodium of 132 dropped even further due to the lack of oral intake. We also think you possibly have adrenal insufficiency. When we checked your adrenal gland cortisol level fasting. It was 4. Normal is 5, usually 6 or 7. If your level has been 3 that would have been diagnostic of adrenal insufficiency. But we do not have that diagnosis yet. We gradually treated you with very concentrated salt water in your veins. And then regular salt water. Your salt sodium level is now 128. Plan of Treatment: 1. Please see your primary care provider in the next 1 to 2 weeks. She knows you are in the hospital. And she will then make a referral or do the workup for adrenal insufficiency. 2. I am starting you on salt tablets. Take 1 salt tablet twice a day. And drink 1-1/2 to 2 L of fluids a day. Do not overdo it. Do not drink more than that. 3. If you cannot get into your primary care provider in the next 1 to 2 weeks, I am giving you a lab slip to get your blood drawn so that the results can be reported to her. Would like you to get your blood drawn once a week until your salt level is stabilized. Care Goals: To feel better and stronger. It has been a long time that he you have not felt well. We also discussed future plans for yourself. For instance we discussed resuscitation status and you are a DO NOT RESUSCITATE after filling out a POLST form with this. The original is going to go home with you. I would also sit down and talk to your and friends about what to do if you could no longer take care of yourself. Do you plan on living at home with the help of hired caregivers? Do you plan on moving to a alf? Do you plan on moving in with a relative and having them take care of you with your ? Assessment: Patient is alert, oriented to person, place, time and situation Additional Instructions or Follow Up instructions: Sherif Phillip MD through [facility] branch on [facility]. [phone]. . No Smoking: If you smoke, Please STOP! Call for help.
--- NOTE | 2024-03-26 08:30 | DISCHARGE SUMMARY ---
Discharge Summary Admit Date: 03/24/24 Discharge Date: 03/26/24 Discharging Provider: Monica Franz MD Primary Care Provider: Sherif Phillip MD at [facility] Code Status: Do Not Attempt Resuscitation Condition at Discharge: Fair Discharge Disposition: 01 Home, Self Care - DIAGNOSES Discharge Diagnoses with Status of Each Condition: 1 hyponatremia 2. Low cortisol levels 3. Type 2 diabetes mellitus, controlled, without complication 4. Hypertension 5. Dyslipidemia 6. Generalized weakness 7. Advance care planning conversation with DO NOT RESUSCITATE status - HPI History of Present Illness: Per admit H&P by telehealth: "78-year-old male with history of hypertension, hypercholesterolemia, GERD presents emergency department for generalized malaise. Patient said that he started experiencing flulike symptoms on March 09 he tested positive for COVID on March 13 and feels like he has not improved or recovered. Patient reports that he overall feels like he is actually getting worse. He says when he drinks water he feels like he is choking and starts to feel like he is having some shortness of breath. He feels very weak with generalized malaise and a constant queasy feeling. He was prescribed Zofran but has not been taking it because he feels like it makes his urinary stream weak. He does not believe he has had any recent fevers or chills and is not coughing up anything." Patient seen and examined with televideo, he was informed that i am based in [place] and he consented for telemedicine encounter. He denies any fv=ever, cough, chest pain, complaints of weakness decrease po intake for last few days, already given 3% hypertonic saline by Er provider. 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, we discussed code status and he status he is in a veetative state does not want to prolong life, also wants to think more about his advance directives, informed that for tonight he will be full code - Past Medical History Cardiovascular: reports: Hypertension, High cholesterol Respiratory: reports: None Neuro: reports: Headaches, Migraines Endocrine/Autoimmune: reports: Type 2 diabetes GI: reports: GERD : reports: None HEENT: reports: None Psych: reports: None Musculoskeletal: reports: None Derm: reports: None MRSA Hx?: Yes - Past Surgical History HEENT: reports: Cataracts - HOSPITAL COURSE Hospital Course: the patient received 2 boluses of hypertonic saline. He was also on normal saline maintenance fluid. Sodium gradually increased in the admission sodium of 118. At discharge she was 128. He felt strong enough to go home. We did do a differential list on causes of low sodium. He does not have congestive heart failure, thyroid function studies are normal. He does not have alcoholic liver disease or cirrhosis. Not describe polydipsia, polyphagia. He is not on hydrochlorothiazide. He is on Jardiance but Jardiance has a rare side effect of elevating your sodium not decreasing it. We did a fasting cortisol level and he is 4.3. Adrenal insufficiency is diagnosed with a cortisol level or 3 or below. As such the suggestion is that he may have adrenal insufficiency has been going on for some time. His primary care provider was contacted and she does confirm that he had a low sodium for several years, even before he met her. It was around 132. During his stay his glucose was treated with sliding scale insulin. Glucose was controlled and below 125 each day. He is discharged on his usual home medications including Jardiance. Advance care planning conversation was held with the patient. He has not really plan for the future with regards to being disabled and not being able to take care of himself anymore. It is a new conversation he and his will have to carefully address. He is estranged from his children except for 1 son. 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 And he did put one of his sons down as the second person to call if she is not available. New medication will be a salt tablet 1 g twice a day. I am asking him to eat a normal amount of salt in diet and not be salt restricted. I am asking him to drink 1500 cc of water a day. Discharge exam had a temperature of 36.9. Heart rate 61. Blood pressure 149/70. Respirations 16. 96% on room air. He is a 5 foot 5 inch male from [facility] and weighs 66.5 kg. Very quiet, muted affect. At times seems to have psychomotor slowing but he may just be very reserved. No focal deficits, no ataxia. Generalized weakness that is mild but is able to get out of the bed, get into a chair. Go to the bathroom. Get back in bed without assist. Neck is supple. Lungs are clear. Regular rate and rhythm. Abdomen is soft, nontender, no edema. He does not have hyperpigmentation. During his stay he was mildly hypertensive at anywhere between 158 systolic. And as high as 168. Only 1 episode of hypotension on admission quickly resolved. He dropped 105 in the ER. I have asked him to see his primary care provider in follow-up. I did discuss the case with her, Dr. Phillip from [facility], while he was in the hospital and she will see him in follow-up. I would like him to get his blood work once a week with a BMP. Greater than 30 minutes spent coordinating discharge. has been at the bedside every single day as a very strong advocate for her . She also was present for the discharge instructions. This document was made in part using voice recognition software. While efforts are made to proofread this document, sound alike and grammatical errors may occur. - ALLERGIES Allergies/Adverse Reactions: Allergies Allergy/AdvReac Type Severity Reaction Status Date / Time ezetimibe Allergy Unknown Verified 03/23/24 20:26 metformin Allergy Unknown Verified 03/23/24 20:26 - MEDICATIONS Home Medications: Ambulatory Orders Medication Instructions Recorded Confirmed Atorvastatin [Lipitor] 10 mg PO DAILY 03/17/21 03/24/24 Pantoprazole Sodium 40 mg PO BID 03/17/21 03/24/24 lisinopriL [Lisinopril] 5 mg PO DAILY 03/17/21 03/24/24 Erythromycin Ophth Oint (3.5) 1 applic RIGHTEYE TID 5 Days #3.5 03/15/24 03/24/24 [Ilotycin Ophth Oint (3.5)] gm Ondansetron Odt [Zofran] 4 mg TL Q6H PRN #10 tablet 03/15/24 03/24/24 Empagliflozin [Jardiance] 10 mg PO DAILY 03/24/24 03/24/24 Gabapentin [Neurontin] 100 mg PO HS 03/24/24 03/24/24 Triamcinolone 0.1% Cream [Kenalog 1 each TOP BID 03/24/24 03/24/24 0.1% Cream] Sodium Chloride [Salt Tab] 1 gm PO BIDWM #60 tablet 03/26/24 - LABS Result Diagrams: 03/23/24 20:44 03/26/24 05:53 - SEPSIS Current Stage of Sepsis: Ruled out
[2024-03-26 09:55] VITALS: BP 147/71; O2SAT 95
== END 2024-03-26 10:37 | disposition home or self-care (01) | DRG 641 ==
LOC: ED 20:13 → MS3 03-24 00:11 → OBSVTOIN 03-24 12:11
PROVIDERS: ADMIT Internal Medicine; ATTEND Specialist
DX: E87.1 Hypo-osmolality and hyponatremia (principal); E27.40 Unspecified adrenocortical insufficiency; E11.9 Type 2 diabetes mellitus without complications; R53.81 Other malaise; I10 Essential (primary) hypertension; E78.00 Pure hypercholesterolemia, unspecified; K21.9 Gastro-esophageal reflux disease without esophagitis; E83.42 Hypomagnesemia; R11.0 Nausea; R53.1 Weakness; R63.8 Other symptoms and signs concerning food and fluid intake; Z62.890 Parent-child estrangement NEC; Z66 Do not resuscitate; Z71.89 Other specified counseling; Z79.84 Long term (current) use of oral hypoglycemic drugs; Z79.899 Other long term (current) drug therapy; Z86.16 Personal history of COVID-19; Z88.8 Allergy status to other drugs, medicaments and biological substances
CPT/HCPCS: 36415; 80048; 80053; 82533; 83036; 83690; 83735; 83930; 83935; 84295; 84300; 84443; 85025; 93005; 96361; 96365; 96375; 99284; 99285; A9270; G0378